=== PATIENT | female | born 1940 | race Caucasian/White ===

== ENCOUNTER 2018-03-06 17:08 | Inpatient (IN) | payer OTHER, SELFPAY ==
[2018-03-06] VITALS (10 sets, daily range): BP systolic 113–185; BP diastolic 53–91; PULSE 71–80; RESP 16; TEMP 36.4–36.9; O2SAT 93–99; BMI 20.2; BMI 19.5
--- NOTE | 2018-03-06 17:09 | DI.RAD.S_ITS ---
PROCEDURE: XR CHEST 1V INDICATIONS: 77 year-old female with trauma. TECHNIQUE: One view of the chest was acquired. COMPARISON: [facility], CHEST 2 VIEW, 05/31/2017, 10:50. [facility], , CHEST 2 VIEW, 03/17/2017, 10:54. FINDINGS: Surgical changes and devices: None. Lungs and pleura: No pleural effusions or pneumothorax. Lungs are clear. Lung volumes are prominent. Mediastinum: Mediastinal contours appear normal. Heart size is normal. There is aortic atherosclerosis. Bones and chest wall: No suspicious bony lesions. Overlying soft tissues appear unremarkable. IMPRESSION: No acute cardiopulmonary disease. Prominent lung volumes raise the question of chronic obstructive pulmonary disease. Dictated by: Iván Vera M.D. on 03/06/2018 at 17:58 Approved by: Iván Vera M.D. on 03/06/2018 at 17:59
--- NOTE | 2018-03-06 17:09 | DI.RAD.S_ITS ---
PROCEDURE: XR HIP W PEL IF DONE RT 2V INDICATIONS: 77 year-old female with right hip deformity after fall. TECHNIQUE: AP pelvis with lateral view(s) of the right hip(s). COMPARISON: None. FINDINGS: Bones: Comminuted intertrochanteric fracture of the proximal right femur is present, with varus angulation of the distal fracture component. Pelvic ring appears intact. No suspicious bony lesions. Soft tissues: The visualized bowel gas pattern is normal. No suspicious soft tissue calcifications. IMPRESSION: Comminuted intertrochanteric fracture of the right hip. Dictated by: Iván Vera M.D. on 03/06/2018 at 18:20 Approved by: Iván Vera M.D. on 03/06/2018 at 18:21
--- NOTE | 2018-03-06 17:12 | ED_ITS ---
HPI - Fall General Chief Complaint: Fall Stated Complaint: GLF Time Seen by Provider: 03/06/18 17:08 Source: patient and EMS Mode of arrival: EMS Limitations: no limitations History of Present Illness HPI Narrative: 71-year-old otherwise healthy female presents after mechanical fall due to flip flops resulted in an obvious right hip or femur injury or with shortening and external rotation. She denies any dizziness, weakness or lightheadedness contributing to the fall. She denies any head injury or neck pain. She takes no blood thinners and last ate at breakfast this morning Related Data Previous Rx's Medication Instructions Recorded darifenacin [Enablex] 7.5 mg PO QDAY #90 tab 05/27/13 levofloxacin [Levaquin] 750 mg PO QDAY #5 tab 05/31/17 prednisone 40 mg PO Q DAY 4 Days #0 tab 05/31/17 Allergies Allergy/AdvReac Type Severity Reaction Status Date / Time Sulfa (Sulfonamide Allergy Intermediate RASH Unverified 01/06/18 12:13 Antibiotics) [SULFA (SULFONAMIDE ANTIBIOTICS)] Review of Systems Review of Systems All systems reviewed & are unremarkable except as noted in HPI and below Constitutional Denies chills, Denies fever(s), Denies lethargy and Denies weakness Eyes Denies change in vision, Denies eye discharge, Denies irritation and Denies loss of vision ENT Ears, Nose, Mouth, and Throat: Denies change in voice, Denies neck pain and Denies sore throat Cardiovascular Denies chest pain, Denies irregular heart rhythm, Denies lightheadedness, Denies palpitations, Denies dyspnea, Denies dyspnea on exertion and Denies orthopnea Respiratory Denies cough, Denies dyspnea, Denies dyspnea on exertion and Denies wheezing Gastrointestinal Gastrointestinal: Denies abdominal pain, Denies change in bowel habits, Denies diarrhea, Denies nausea and Denies vomiting Genitourinary Denies hematuria, Denies flank pain, Denies urinary incontinence and Denies urinary urgency Musculoskeletal Reports abnormal gait, Reports deformity, Reports limited range of motion, Reports muscle cramps, Denies neck pain and Reports radiating pain into limb Integumentary/Breasts Denies pruritus, Denies erythema, Denies rash and Denies wounds Neurologic Reports abnormal gait, Denies confusion, Denies loss of vision and Denies weakness Psychiatric Denies anxiety, Denies confusion, Denies depression, Denies homicidal ideation and Denies suicidal ideation Endocrine Denies palpitations Hematologic/Lymphatic Denies easy bruising Allergic/Immunologic Denies wheezing Exam Narrative Exam Narrative: Pleasant 77-year-old female in obvious pain, clutching her right thigh. GCS 15 Initial Vital Signs Initial Vital Signs: Vital Signs Temperature 98.5 F 03/06/18 17:14 Pulse Rate 78 03/06/18 17:14 Respiratory Rate 16 03/06/18 17:14 Blood Pressure 185/91 H 03/06/18 17:14 Pulse Oximetry 98 03/06/18 17:14 Const General: cooperative, well developed and acute distress Nutritional Appearance: well nourished Orientation: alert, awake, oriented x3 and not confused HENMT Head: normocephalic and atraumatic Ears: external ears normal and TM's normal bilaterally Nose: external nose normal and No nasal discharge Face and sinus: sinuses nontender, face symmetric, no sinus tenderness and No dry mucous membranes Mouth: oral mucosae normal and moist mucous membranes Teeth and gingiva: dentition normal Throat: tonsils normal and uvula midline Eyes General: appearance normal, both eyes and all related structures Eyelids: eyelids normal Conjunctivae: conjunctivae normal Sclera: sclerae normal Pupils: PERRL EOM: EOM intact bilaterally Neck Neck: normal visual inspection, trachea midline, No lymphadenopathy, No midline deformity and No JVD Lymphatic: No lymphedema Chest Chest: normal inspection of the chest Resp Effort & Inspection: normal respiratory effort, able to speak in complete sentences, no respiratory distress and no use of accessory muscles Auscultation: clear to auscultation bilaterally, no rales, no rhonchi and no wheezes Cardio Rate: regular rate Rhythm: regular rhythm Heart Sounds: no click, no gallops, no murmurs and no rubs Pulses: normal peripheral pulses GI Inspection: non-distended Palpation: soft, no hepatosplenomegaly, No guarding, No pulsatile mass and No tender Auscultation: normal bowel sounds Back/Spine/Pelvis Back: No CVA tenderness Cervical Spine: cervical ROM normal and No pain with cervical ROM Thoracic/Lumbar Spine: thoracic and lumbar spine normal to inspection Skin General: no rashes or lesions noted, No jaundice and No petechiae Neuro General: alert, oriented x3 and no focal motor deficits Speech: speech normal Motor: muscle tone normal throughout Sensory Exam: no sensory deficits noted Extrem General: no clubbing, cyanosis or edema, no pedal edema and no calf tenderness Right lower extremity: hip/thigh Details: abnormal to inspection, tenderness, swelling, abnormal ROM, crepitus and deformity Psych Appearance: well kempt Mental Status: mental status grossly normal Attitude: cooperative Thought Content: normal and suicidality Judgment: judgment good PFSH Social History Smoking Status: Current every day smoker Course Orders Ordered: ED Orders 03/06/18 16:26 Basic Metabolic Panel Stat Complete Blood Count AUTO DIFF Stat 03/06/18 17:09 XR chest 1V Stat XR hip w pel if done RT 2V Stat Discontinued Medications Fentanyl (Sublimaze) 50 mcg 1 mcg/kg (50 mcg) IV NOW ONE Stop: 03/06/18 17:22 Last Admin: 03/06/18 17:36 Dose: 50 mcg Fentanyl (Sublimaze) 50 mcg 1 mcg/kg (50 mcg) IV NOW ONE Stop: 03/06/18 18:21 Last Admin: 03/06/18 18:22 Dose: 50 mcg Hydromorphone HCl (Dilaudid) 0.5 mg IV NOW ONE Stop: 03/06/18 19:54 Last Admin: 03/06/18 19:54 Dose: 0.5 mg Consultations Consultation #1: Dr. Mckeon happy to consult, patient will need surgery, likely tomorrow pending clearance medically. Requests admit to hospitalist Consultation #2: Dr. Pavon happy to accept on his service Vital Signs - 8 hr 03/06/18 17:14 03/06/18 18:26 03/06/18 19:00 Temperature 98.5 F Pulse Rate 78 71 75 Respiratory Rate 16 Blood Pressure 185/91 H Blood Pressure [Right Arm] 148/83 H 148/84 H Pulse Oximetry 98 96 99 03/06/18 19:30 Temperature Pulse Rate 78 Respiratory Rate Blood Pressure Blood Pressure [Right Arm] 154/80 H Pulse Oximetry 98 MDM - Fall Medical Records Attestation: I reviewed the patient's medical records. Lab Data Attestation: I reviewed the patient's lab results. Result diagrams: 03/06/18 16:26 03/06/18 16:26 Lab Results 03/06/18 03/06/18 Range/Units 16:26 16:26 WBC 6.6 (4.5-11.0) X10^3/uL RBC 3.84 L (4.0-5.2) X10^6/uL Hgb 12.1 (12.0-16.0) g/dL Hct 35.5 L (36-46) % MCV 92.4 (80-100) fL MCH 31.6 (26-34) PG MCHC 34.2 (30-36) % RDW 13.7 (11.6-14.8) % Plt Count 281 (150-400) X10^3/uL Neut % (Auto) 58.9 (50-75) % Lymph % (Auto) 26.3 (25-40) % [place] % (Auto) 12.3 (3-14) % Eos % (Auto) 1.9 L (2-4) % Baso % (Auto) 0.6 (0-2) % Neut # (Auto) 3900 (9915-7074) /uL Sodium 133 L (137-145) mmol/L Potassium 3.6 (3.4-5.1) mmol/L Chloride 97 L (98-107) mmol/L Carbon Dioxide 26 (22-32) mmol/L BUN 19 H (7-17) mg/dL Creatinine 0.60 (0.52-1.04) mg/dL Estimated GFR > 60.0 (>60) mL/min BUN/Creatinine Ratio 31.7 H (6-22) Glucose 90 (80-110) mg/dL Calcium 8.7 (8.4-10.2) mg/dL Imaging Data Hip Xray: My impression: comminuted R intertrochanteric fx Radiologist's impression: PROCEDURE: XR HIP W PEL IF DONE RT 2V INDICATIONS: 77 year-old female with right hip deformity after fall. TECHNIQUE: AP pelvis with lateral view(s) of the right hip(s). COMPARISON: None. FINDINGS: Bones: Comminuted intertrochanteric fracture of the proximal right femur is present, with varus angulation of the distal fracture component. Pelvic ring appears intact. No suspicious bony lesions. Soft tissues: The visualized bowel gas pattern is normal. No suspicious soft tissue calcifications. IMPRESSION: Comminuted intertrochanteric fracture of the right hip. Dictated by: Iván Vera M.D. on 03/06/2018 at 18:20 Approved by: Iván Vera M.D. on 03/06/2018 at 18:21 Discharge Plan Departure Patient Disposition: Admitted As Inpatient Clinical Impression: Closed hip fracture Admit Date/Time: 03/06/18 19:55 Admit Provider: Arley Pavon
[2018-03-06] MEDS: fentaNYL 100 MCG/2 ML INJ 50 MCG IV ×2 (17:36→18:22)
[2018-03-06 17:38] LABS: Add Manual Diff / Slide Review NO; Basophils Percent Auto 0.6 % (0-2); Eosinophils Percent Auto 1.9 % (2-4); Hematocrit 35.5 % (36-46); Hemoglobin 12.1 g/dL (12.0-16.0); Lymphocytes Percent Auto 26.3 % (25-40); Mean Corpuscular HGB Conc 34.2 % (30-36); Mean Corpuscular Hemoglobin 31.6 PG (26-34); Mean Corpuscular Volume 92.4 fL (80-100); Monocytes Percent Auto 12.3 % (3-14); Neutrophils Absolute Auto 3900 /uL (3000-5900); Neutrophils Percent Auto 58.9 % (50-75); Platelet Count 281 X10^3/uL (150-400); Red Blood Cell Count 3.84 X10^6/uL (4.0-5.2); Red Cell Distribution Width 13.7 % (11.6-14.8); White Blood Cell Count 6.6 X10^3/uL (4.5-11.0)
[2018-03-06 17:49] LABS: BUN Creatinine Ratio 31.7 (6-22); Blood Urea Nitrogen 19 mg/dL (7-17); Calcium 8.7 mg/dL (8.4-10.2); Carbon Dioxide 26 mmol/L (22-32); Chloride 97 mmol/L (98-107); Estimated Glomerular Filt Rate > 60.0 mL/min (>60); Glucose 90 mg/dL (80-110); HEMOLYSIS 19 (0-50); Potassium 3.6 mmol/L (3.4-5.1); Sodium 133 mmol/L (137-145)
[2018-03-06] MEDS: HYDROMORPHONE 0.5 MG INJ IV (19:54)
--- NOTE | 2018-03-06 20:51 | PM.CN ---
History of Present Illness Date Patient Seen: 03/06/18 Time Patient Seen: 20:51 Chief complaint: GLF Reason for consult: R hip fracture Requesting provider: Arthur Restrepo Narrative: 77 year old female with a right hip fracture. She tripped on her flip flops and fell earlier this afternoon. GLF. Did not hit head or LOC. Not complaining of pain anywhere else. Unable to walk. Severe pain with any motion. Sharp to anterior right thigh. She just moved to [facility] last week and has 3 children locally. She has HTN and COPD. Not O2 dependent but gets very SOB with exertion normally. [facility] Medical History COPD (chronic obstructive pulmonary disease) (Acute) Hypertension (Acute) Social History Smoking Status: Current every day smoker Meds Home Medications Medication Instructions Recorded Confirmed Type darifenacin [Enablex] 7.5 mg PO QDAY #90 tab 05/27/13 Rx levofloxacin [Levaquin] 750 mg PO QDAY #5 tab 05/31/17 Rx prednisone 40 mg PO Q DAY 4 Days #0 tab 05/31/17 Rx Allergies Allergy/AdvReac Type Severity Reaction Status Date / Time Sulfa (Sulfonamide Allergy Intermediate RASH Verified 03/06/18 21:06 Antibiotics) [SULFA (SULFONAMIDE ANTIBIOTICS)] Review of Systems Constitutional Constitutional: Reports fatigue ENT Ears, Nose, Mouth, and Throat: No dizziness Cardiovascular Cardiovascular: Denies chest pain and Reports shortness of breath with activity Respiratory Respiratory: Reports dyspnea on exertion Gastrointestinal Gastrointestinal: Denies abdominal pain Genitourinary Genitourinary: Denies hematuria Musculoskeletal Musculoskeletal: Reports deformity Neurologic Neurologic: Denies dizziness Psychiatric Psychiatric: Denies anxiety Endocrine Endocrine: Reports fatigue Hematologic/Lymphatic Hematologic/Lymphatic: Denies easy bleeding Exam Vital Signs (past 8 hours): Vital Signs - 8 hr 03/06/18 17:14 03/06/18 18:26 03/06/18 19:00 Temperature 98.5 F Pulse Rate 78 71 75 Respiratory Rate 16 Blood Pressure 185/91 H Blood Pressure [Right Arm] 148/83 H 148/84 H Pulse Oximetry 98 96 99 03/06/18 19:30 03/06/18 20:00 Temperature Pulse Rate 78 77 Respiratory Rate Blood Pressure Blood Pressure [Right Arm] 154/80 H 113/57 L Pulse Oximetry 98 98 Pulse Oximetry 98 Oxygen Delivery Method Room Air Const Orientation: alert and oriented x3 Resp Effort & Inspection: normal respiratory effort Auscultation: clear to auscultation bilaterally Cardio Rate: regular rate Rhythm: regular rhythm Back/Spine/Pelvis Other: R leg intact integument. ER of leg. 2+ DP pulse. easily moves foot/toes up/down. intact sensation throughout. Objective Imaging R hip: My impression: 3 part displaced fracture through greater trochanter and intertrochanteric region. intact lesser troch Labs Result Diagrams: 03/06/18 16:26 03/06/18 16:26 Labs: Laboratory Results - last 24 hr 03/06/18 03/06/18 16:26 16:26 WBC 6.6 RBC 3.84 L Hgb 12.1 Hct 35.5 L MCV 92.4 MCH 31.6 MCHC 34.2 RDW 13.7 Plt Count 281 Neut % (Auto) 58.9 Lymph % (Auto) 26.3 [place] % (Auto) 12.3 Eos % (Auto) 1.9 L Baso % (Auto) 0.6 Neut # (Auto) 3900 Sodium 133 L Potassium 3.6 Chloride 97 L Carbon Dioxide 26 BUN 19 H Creatinine 0.60 Estimated GFR > 60.0 BUN/Creatinine Ratio 31.7 H Glucose 90 Calcium 8.7 Assessment & Plan Plan: Assessment/Plan Narrative: HTN and COPD per medicine. Admitted to medicine. R hip fx- plan for ORIF in morning. Discussed surgery and recovery with patient and her daughter at length. Risks and benefits of surgery were discussed including but not limited to medical with AL, CVA, stroke, DVT, PE, , infection, bleeding, scarring, nerve or blood vessel injury, nonunion, malunion, limp, loss of ambulatory status, need for further surgery. All questions were answered and the consents obtained.
[2018-03-06] MEDS: SODIUM CHLORIDE 0.9% 1,000 ML 100 ML IV (22:17)
[2018-03-06] MEDS: ACETAMINOPHEN 325 MG TABLET 650 MG PO (22:18)
[2018-03-06] MEDS: HYDROMORPHONE 0.5 MG INJ 1 MG IV (22:52)
--- NOTE | 2018-03-06 23:22 | PC.NURSE ---
nelida admit note Pt c/o severe pain to right hip with any movement. medicated with Dilaudid. Pt then was nauseated. Called / Mike and received orders.
[2018-03-07] VITALS (22 sets, daily range): BP systolic 100–147; BP diastolic 53–76; PULSE 69–89; RESP 10–19; TEMP 36.3–37; O2SAT 93–100; BMI 19.5
--- NOTE | 2018-03-07 | DI.RAD.S_ITS ---
PROCEDURE: XR HIP W PEL IF DONE RT 2V INDICATIONS: ORIF RT HIP TECHNIQUE: 3 views of the hip were acquired. COMPARISON: None. FINDINGS: 3 spot fluoroscopic intraoperative images demonstrating plate and screw fixation of proximal right femur fracture Dictated by: Keon Thompson M.D. on 03/07/2018 at 9:45 Approved by: Keon Thompson M.D. on 03/07/2018 at 9:46
[2018-03-07] MEDS: HYDROMORPHONE 0.5 MG INJ 1 MG IV (04:58)
[2018-03-07] MEDS: ONDANSETRON 4 MG/2 ML INJ IV (05:05)
[2018-03-07 05:49] LABS: Hematocrit 30.3 % (36-46); Hemoglobin 10.5 g/dL (12.0-16.0)
[2018-03-07] MEDS: LACTATED RINGERS 1,000 ML 42 ML IV (07:50)
[2018-03-07] MEDS: ALBUTEROL 2.5 MG/3 ML NEB INH (08:04)
[2018-03-07] MEDS: CARVEDILOL 6.25 MG TABLET PO ×2 (08:07→20:53)
[2018-03-07] MEDS: CEFAZOLIN 2 GM/100 ML FROZ.PIGGY IV ×3 (08:19→23:46)
--- NOTE | 2018-03-07 08:45 | SUR.OPER ---
Head on pillow. Supine on fracture table with operative leg secured in traction. Other leg secured in padded stirrup. Arms across chest, secured with sheet.
[2018-03-07] MEDS: BUPIVACAINE LIPOSOME 266 MG/20 ML VIAL INJ (08:54)
[2018-03-07] MEDS: BUPIVACAINE 0.25% W/ EPI 50 ML VIAL INJ (08:54)
--- NOTE | 2018-03-07 09:39 | PM.OP.1 ---
Operative Date/Time/Diagnoses - Date of procedure: 03/07/18 Time of procedure: 09:39 Pre-op diagnosis: Right intertrochanteric hip fracture Post-op diagnosis: same Procedure & Clinicians Procedure: ORIF of right hip intertrochanteric fracture with plate screw system Same procedure as scheduled: Yes Indications: 77-year-old female with a displaced intertrochanteric hip fracture. It was felt she would benefit from surgical intervention. Risks and benefits of surgery were discussed and appropriate consent obtained. Surgeon: Carlyle Mckeon Click Yes if Unassisted: Yes Anesthesia Type: General Operative Notes Findings: None Closure Type: primary Specimen(s): none sent Implants & Drains: Synthes DHS Hemovac Estimated Blood Loss (mL): 50 Procedure in detail: Patient was brought to the operating room and intubated on the stretcher. Time-out was performed. Preoperative antibiotics were given. They were then transferred to the fracture table. The well leg was placed in the well leg stout and the well marked right leg was placed in traction. The fracture was reduced in a closed fashion and confirmed with x-ray positioning. The leg was prepped and draped in the standard sterile fashion. Using fluoro for localization, a 12 cm longitudinal incision was made just distal to the greater trochanter. We used Bovie to come down to and split the fascia. The vastus lateralis was exposed and the muscle was split. We exposed the bone. The drill guide was positioned and checked under x-ray and then we advanced a guidewire up the femoral neck into the head. Position was confirmed on two views of fluoroscopy. We then measured and reamed under fluoro. We then placed our 80 mm length hip screw. We then placed a 4 hole plate over the screw and fixed it to the femoral shaft with standard AO technique. Final x-rays were taken. The wound was irrigated. The vastus and then the fascia were closed. A deep drain was placed. Superficial and skin were closed. Sterile dressing was placed. They were then extubated and brought to the recovery room with no complications. Complications: none Condition: stable Disposition: PACU Plan for aftercare: Touchdown weight-bearing for 6 weeks. Admitted inpatient.
[2018-03-07] MEDS: MORPHINE 10 MG/ML INJ 4 MG IV ×3 (09:50→10:00)
--- NOTE | 2018-03-07 11:14 | SUR.PHASEI ---
late entyry: pt brought to pacu from room via bed, given carvedilol and albuteral per dr toro. pt taken to surgery, pt back to pacu from or, stable pacu stay medicated with morphine for pain, rating started 10/10 down to 4/10 by discharge. pt brought up to room 208 via bed and left in stable condition.
[2018-03-07] MEDS: LACTATED RINGERS 1,000 ML 125 ML IV ×2 (11:30→20:55)
--- NOTE | 2018-03-07 13:02 | PM.HP.1 ---
History of Present Illness Date Patient Seen: 03/07/18 Chief complaint: GLF Narrative: This is a 77-year-old female patient of Dr. Maria Victoria Bustamante who had a loss of balance at home resulting in ground level fall. X-rays showed right hip fracture. She had ORIF of right hip morning of March 07 after admission. She is seen postop and doing well. She has history of falls. She does not use a walker. She moved to [facility], [place] just a week ago. She has medical history of COPD, hypertension. She states her breathing is stable though she is quite limited due to her COPD. She is not on home O2. She is a current smoker. She also has significant excess alcohol use 4 beers or more a day possible contributor to falls. Patient History Medical History COPD (chronic obstructive pulmonary disease) (Acute) Hypertension (Acute) Family & Social History Family History: Reviewed 03/07/18 by Arley Pavon MD Social History: household members none Prior Living Arrangements [facility] Safety & Behavioral: Feels Safe in Current Yes Environment Been Physically Hurt or No Threatened By a Person Suicidal Ideation Description None Suicide Plan Description No Plan Tobacco & Substance use: Tobacco type cigarettes Smoking Status Current every day smoker alcohol intake frequency 0-2 drinks per day Substance Use Type does not use Meds Home Medications Medication Instructions Recorded Confirmed Type albuterol sulfate 2 puff INHALATION Q4-6H PRN 03/06/18 03/06/18 History aspirin 81 mg PO DAILY 03/06/18 03/06/18 History bupropion HCl [Wellbutrin SR] 150 mg PO BID 03/06/18 03/06/18 History carvedilol 6.25 mg PO BID 03/06/18 03/06/18 History docusate sodium 100 mg PO BID PRN 03/06/18 03/06/18 History fenofibrate 54 mg PO DAILY 03/06/18 03/06/18 History lisinopril 20 mg PO BID 03/06/18 03/06/18 History sertraline 100 mg PO DAILY 03/06/18 03/06/18 History Allergies Allergy/AdvReac Type Severity Reaction Status Date / Time Sulfa (Sulfonamide Allergy Intermediate RASH Verified 03/06/18 21:06 Antibiotics) [SULFA (SULFONAMIDE ANTIBIOTICS)] Review of Systems Review of Systems All systems reviewed & are unremarkable except as noted in HPI and below Exam Vital Signs (past 8 hours): Vital Signs - 8 hr 03/07/18 05:04 03/07/18 07:30 03/07/18 07:50 Temperature 97.4 F L 97.6 F 97.9 F Pulse Rate 75 75 Respiratory Rate 16 16 16 Blood Pressure 120/60 100/53 L 112/55 L Pulse Oximetry 97 95 03/07/18 09:31 03/07/18 09:36 03/07/18 09:41 Temperature 98.6 F Pulse Rate 77 78 77 Respiratory Rate 10 L 16 18 Blood Pressure 147/70 H 130/66 H 135/60 H Pulse Oximetry 100 99 100 03/07/18 09:46 03/07/18 09:51 03/07/18 10:01 Temperature Pulse Rate 78 69 78 Respiratory Rate 17 16 19 Blood Pressure 125/59 H 121/59 H 127/66 H Pulse Oximetry 99 100 97 03/07/18 10:06 03/07/18 10:11 03/07/18 10:30 Temperature 98.4 F 97.3 F L Pulse Rate 77 77 89 Respiratory Rate 16 16 12 Blood Pressure 129/54 H 118/57 L 116/70 Pulse Oximetry 99 97 93 03/07/18 11:00 03/07/18 11:39 Temperature 97.6 F 97.7 F Pulse Rate 79 80 Respiratory Rate 16 18 Blood Pressure 104/64 117/54 L Pulse Oximetry 94 98 Pulse Oximetry 98 Oxygen Delivery Method Room Air Oxygen Flow Rate 1 Narrative Exam Narrative: GENERAL: Elderly female who is alert and well oriented, in no acute distress, seen postop HEAD: Atraumatic. Normocephalic. EYES: Pupils equal, round and reactive. Extraocular motions intact. No scleral icterus. No injection or drainage. OROPHARYNX: moist mucosa NECK: Trachea midline. No JVD or lymphadenopathy. CARDIOVASCULAR: Regular rate and rhythm without murmurs, gallops, or rubs. RESPIRATORY: Clear to auscultation bilaterally. GASTROINTESTINAL: Abdomen nondistended, soft, non-tender. No hepato-splenomegaly, or palpable masses. EXTREMITIES: No this edema. NEUROLOGICAL: Alert, well oriented, speech is intact, normal bilateral upper and lower extremity strength SKIN: warm, dry, no rash Objective Labs Result Diagrams: 03/07/18 05:28 03/06/18 16:26 Labs: Laboratory Results - last 24 hr 03/06/18 03/06/18 03/07/18 16:26 16:26 05:28 WBC 6.6 RBC 3.84 L Hgb 12.1 10.5 L Hct 35.5 L 30.3 L MCV 92.4 MCH 31.6 MCHC 34.2 RDW 13.7 Plt Count 281 Neut % (Auto) 58.9 Lymph % (Auto) 26.3 [place] % (Auto) 12.3 Eos % (Auto) 1.9 L Baso % (Auto) 0.6 Neut # (Auto) 3900 Sodium 133 L Potassium 3.6 Chloride 97 L Carbon Dioxide 26 BUN 19 H Creatinine 0.60 Estimated GFR > 60.0 BUN/Creatinine Ratio 31.7 H Glucose 90 Calcium 8.7 Assessment & Plan Plan: Assessment/Plan Narrative: 1. Right hip fracture: Patient stable status post ORIF on 03/07/2018. Continue postop pain management, physical therapy. 2. COPD: Stable. Continue routine inhalers. 3. Hypertension: BP adequately controlled. Continue routine medications. Quality VTE Deep Vein Thrombosis/Pulmonary Embolism Present on Admission: No
--- NOTE | 2018-03-07 13:07 | P.HP_ITS ---
History of Present Illness Date Patient Seen: 03/07/18 Chief complaint: GLF Narrative: This is a 77-year-old female patient of Dr. Maria Victoria Bustamante who had a loss of balance at home resulting in ground level fall. X-rays showed right hip fracture. She had ORIF of right hip morning of March 07 after admission. She is seen postop and doing well. She has history of falls. She does not use a walker. She moved to [facility] just a week ago. She has medical history of COPD, hypertension. She states her breathing is stable though she is quite limited due to her COPD. She is not on home O2. She is a current smoker. She also has significant excess alcohol use 4 beers or more a day possible contributor to falls. Patient History Medical History COPD (chronic obstructive pulmonary disease) (Acute) Hypertension (Acute) Family & Social History Family History: Reviewed 03/07/18 by Arley Pavon MD Social History: household members none Prior Living Arrangements Alf Facility Safety & Behavioral: Feels Safe in Current Yes Environment Been Physically Hurt or No Threatened By a Person Suicidal Ideation Description None Suicide Plan Description No Plan Tobacco & Substance use: Tobacco type cigarettes Smoking Status Current every day smoker alcohol intake frequency 0-2 drinks per day Substance Use Type does not use Meds Home Medications Medication Instructions Recorded Confirmed Type albuterol sulfate 2 puff INHALATION Q4-6H PRN 03/06/18 03/06/18 History aspirin 81 mg PO DAILY 03/06/18 03/06/18 History bupropion HCl [Wellbutrin SR] 150 mg PO BID 03/06/18 03/06/18 History carvedilol 6.25 mg PO BID 03/06/18 03/06/18 History docusate sodium 100 mg PO BID PRN 03/06/18 03/06/18 History fenofibrate 54 mg PO DAILY 03/06/18 03/06/18 History lisinopril 20 mg PO BID 03/06/18 03/06/18 History sertraline 100 mg PO DAILY 03/06/18 03/06/18 History Allergies Allergy/AdvReac Type Severity Reaction Status Date / Time Sulfa (Sulfonamide Allergy Intermediate RASH Verified 03/06/18 21:06 Antibiotics) [SULFA (SULFONAMIDE ANTIBIOTICS)] Review of Systems Review of Systems All systems reviewed & are unremarkable except as noted in HPI and below Exam Vital Signs (past 8 hours): Vital Signs - 8 hr 3 03/07/18 05:04 03/07/18 07:30 03/07/18 07:50 Temperature 97.4 F L 97.6 F 97.9 F Pulse Rate 75 75 Respiratory Rate 16 16 16 Blood Pressure 120/60 100/53 L 112/55 L Pulse Oximetry 97 95 3 03/07/18 09:31 03/07/18 09:36 03/07/18 09:41 Temperature 98.6 F Pulse Rate 77 78 77 Respiratory Rate 10 L 16 18 Blood Pressure 147/70 H 130/66 H 135/60 H Pulse Oximetry 100 99 100 3 03/07/18 09:46 03/07/18 09:51 03/07/18 10:01 Temperature Pulse Rate 78 69 78 Respiratory Rate 17 16 19 Blood Pressure 125/59 H 121/59 H 127/66 H Pulse Oximetry 99 100 97 3 03/07/18 10:06 03/07/18 10:11 03/07/18 10:30 Temperature 98.4 F 97.3 F L Pulse Rate 77 77 89 Respiratory Rate 16 16 12 Blood Pressure 129/54 H 118/57 L 116/70 Pulse Oximetry 99 97 93 3 03/07/18 11:00 03/07/18 11:39 Temperature 97.6 F 97.7 F Pulse Rate 79 80 Respiratory Rate 16 18 Blood Pressure 104/64 117/54 L Pulse Oximetry 94 98 Pulse Oximetry 98 Oxygen Delivery Method Room Air Oxygen Flow Rate 1 Narrative Exam Narrative: GENERAL: Elderly female who is alert and well oriented, in no acute distress, seen postop HEAD: Atraumatic. Normocephalic. EYES: Pupils equal, round and reactive. Extraocular motions intact. No scleral icterus. No injection or drainage. OROPHARYNX: moist mucosa NECK: Trachea midline. No JVD or lymphadenopathy. CARDIOVASCULAR: Regular rate and rhythm without murmurs, gallops, or rubs. RESPIRATORY: Clear to auscultation bilaterally. GASTROINTESTINAL: Abdomen nondistended, soft, non-tender. No hepato- splenomegaly, or palpable masses. EXTREMITIES: No this edema. NEUROLOGICAL: Alert, well oriented, speech is intact, normal bilateral upper and lower extremity strength SKIN: warm, dry, no rash Objective Labs Result Diagrams: 03/07/18 05:28 03/06/18 16:26 Labs: Laboratory Results - last 24 hr 03/06/18 03/06/18 03/07/18 16:26 16:26 05:28 WBC 6.6 RBC 3.84 L Hgb 12.1 10.5 L Hct 35.5 L 30.3 L MCV 92.4 MCH 31.6 MCHC 34.2 RDW 13.7 Plt Count 281 Neut % (Auto) 58.9 Lymph % (Auto) 26.3 [place] % (Auto) 12.3 Eos % (Auto) 1.9 L Baso % (Auto) 0.6 Neut # (Auto) 3900 Sodium 133 L Potassium 3.6 Chloride 97 L Carbon Dioxide 26 BUN 19 H Creatinine 0.60 Estimated GFR > 60.0 BUN/Creatinine Ratio 31.7 H Glucose 90 Calcium 8.7 Assessment & Plan Plan: Assessment/Plan Narrative: 1. Right hip fracture: Patient stable status post ORIF on 03/07/2018. Continue postop pain management, physical therapy. 2. COPD: Stable. Continue routine inhalers. 3. Hypertension: BP adequately controlled. Continue routine medications. Quality VTE Deep Vein Thrombosis/Pulmonary Embolism Present on Admission: No
[2018-03-07] MEDS: HYDROCODONE/ACET 5/325 TABLET 2 TAB PO ×3 (13:55→23:44)
--- NOTE | 2018-03-07 16:16 | PT.IIE ---
Surgery Performed Operation Date: 03/07/18 07:05 Actual Procedures p ORIF Hip DHS(Right) - Carlyle Mckeon MD Medical History (Last Reviewed 03/07/18 @ 13:04 by Arley Pavon MD) COPD (chronic obstructive pulmonary disease) (Acute) Hypertension (Acute) Physical Therapy Inpatient Evaluation/Re-Eval M1 PT/OT-IP Prior Functional Status Start: 03/07/18 16:00 Freq: Status: Active Protocol: Document 03/07/18 15:50 RCC (Rec: 03/07/18 16:16 RCC [id number]) Medical Review Prior Functional Status Medical History Reviewed Yes Diet/Fluid Consistency Regular Communication WNL Mobility and Gait Indep. ambulator without device, not much ambulation in community recently. Social History Household Members none Living Arrangements Alf Facility Number of Stairs To Enter/Railing? 0 Home Environment Walk in Shower Additional Social History Comment Recently moved into [facility] 1 week ago from [facility]. No assistive devices. M2 PT-IP Current Condition Start: 03/07/18 16:00 Freq: Status: Active Protocol: Document 03/07/18 15:50 RCC (Rec: 03/07/18 16:16 RCC [id number]) Physical Therapy Current Condition Current Condition Evaluation Date 03/07/18 Treatment Diagnosis R hip ORIF 03/07/18, GLF, weakness Onset Date 03/06/18 Precautions Other Precautions Touch-down weight-bearing x6 weeks RLE. Weight Bearing Status Weight Bearing Status Touch Down Weight Bearing M3 PT-IP Subjective Start: 03/07/18 16:00 Freq: Status: Active Protocol: Document 03/07/18 15:50 RCC (Rec: 03/07/18 16:16 [facility] [id number]) Subjective Physical Therapy Visit Type Type Initial Evaluation Visit Start Time 15:00 Visit Stop Time 15:50 Total Visit Minutes 50 Notes 2 daughters in room on arrival . Physical Therapy Visit Comments Patient Comments Pt fearful to move her R leg, notes pain to even move just the L leg. Patient/Caregiver Goals Get back to normal life. Therapy Pain Assessment Pain When Pain Assessed At Rest Pain Present Pain Present Pain Reported Location Right Hip Intensity 8 Scale Used Numeric (1 - 10) Description Aching Spasm Stabbing Pain Behaviors Facial Grimacing Guarding Moaning Pain Management Techniques Modification of Treatment Re-positioning Timing of Activity with Medications M4 PT-IP Mobility and Gait Start: 06/10/18 16:00 Freq: Status: Active Protocol: Document 03/07/18 15:50 RCC (Rec: 03/07/18 16:16 [facility] [id number]) PT-Bed Mobility Assessment Supine to Sit Supine to Sit Maximum Assistance 1 Person Assistance Sit to Supine Sit to Supine Maximum Assistance 1 Person Assistance Scooting Scooting to Edge of Bed Maximum Assistance PT-Transfer Assessment Comments Mobility Comments Did not attempt due to pain. PT-Balance Assessment Sitting Balance and Reactions Static Sitting Balance Ability Fair Dynamic Sitting Balance Ability Fair M5 PT-IP Objective Assessments Start: 03/07/18 16:00 Freq: Status: Active Protocol: Document 03/07/18 15:50 [facility] (Rec: 03/07/18 16:16 [facility] [id number]) Orientation Orientation/Cognition Level of Alertness Alert Orientation Name Place Situation Language Function Ability No Deficits Noted Safety Awareness Decreased Safety Awareness Strength Lower Extremity Strength Assessment Bilaterally Impaired Hip Hip flexion: L 3/5, R 2/5 Knee extension: L 3+/5, R 2+/5 Ankle DF: L 5/5, R 4/5 Coordination Assessment Gross Coordination Gross Coordination WNL Sensation Assessment Sensation Gross Sensation WNL Muscle Tone Muscle Tone WNL Yes M6 PT-IP Treatment Start: 03/07/18 16:00 Freq: Status: Active Protocol: Document 03/07/18 15:50 [facility] (Rec: 03/07/18 16:16 [facility] [id number]) Physical Therapy Treatment Education Education Provided Precautions Weight Bearing Status Post-Op Packet Safety Other Treatments Other Treatment Performed seated LAQ M7 PT-IP Assessment and Plan Start: 03/07/18 16:00 Freq: Status: Active Protocol: Document 03/07/18 15:50 [facility] (Rec: 03/07/18 16:16 [facility] [id number]) PT Summary Assessment and Plan Potential Rehabilitation Potential Good Status of Condition at Evaluation Evolving Summary Impairments Pain Strength Balance Bed Mobility Transfers Gait Activity Tolerance Assessment Summary Same day post-operative R hip ORIF due to intertrochanteric hip fracture. Orders for TDWB for 6 wks. Family and pt initially surprised pt only allowed for TDWB, increased concern about when she can return to [facility] as she just moved in 1 wk ago. Pt requires increased coaxing, step by step instruction and reminders to breathe to calm herself down. Pain increased with mobility but calmed after pt sitting on EOB. Pt not ready at this time to attempt standing due to pain, anxiety/ fear, and difficulty in sitting position. Overall, pt will require prolonged physical therapy in order to return to prior level of function, and limitation with TDWB of the RLE affects the pt 's ability to ambulate where she will likely require skilled services at SNF rehabilitation for an extended period in order to remain safe with healing and mobility . Pt is not safe to return to [facility] at this time and will require SNF rehabilitation upon d/c. Goals Bed Mobility Goal Minimal Assistance Transfer Goal Moderate Assistance Front Wheeled Walker Gait Goal Moderate Assistance Gait Distance 5 (fwd, bkwd alternating L heel-toe scooting) Days to Meet Goals 4 Frequency of Treatment Frequency Of Treatment Twice a Day Treatment Plan Physical Therapy Treatment Plan Bed Mobility Training Transfer Training Gait Training Therapeutic Exercise Balance Retraining Post Op Education Discharge Planning Hot or Cold Pack Neuromuscular Re-ed Other Recommendations and Next Treatment Review post-op exercises, Focus trial standing with 2 assist and FWW (TDWB RLE), progress toward transfers. Recommendations To Nursing Amount of Assist Needed 2 Person Assist Discharge Recommendations PT Discharge Recommendations SNF Rehab Provider Visit Care Team Role Provider Type Carlyle Mckeon MD Other Providers Physician Specialty: Orthopedic Surgery Maria Victoria Bustamante MD Family Provider Physician Primary Care Provider Specialty: Internal Medicine Arthur Restrepo DO Emergency Provider Physician Specialty: Emergency Medicine Arley Pavon MD Admit Provider Physician Attending Provider Specialty: Internal Medicine
[2018-03-07] MEDS: ALBUTEROL HFA 60 PUFF/8 GM INH INH (16:36)
[2018-03-07] MEDS: LISINOPRIL 20 MG TABLET PO (20:53)
[2018-03-07] MEDS: buPROPion SR 150 MG TAB PO (20:53)
[2018-03-07] MEDS: DOCUSATE 100 MG CAPSULE PO (20:53)
--- NOTE | 2018-03-07 21:24 | PC.NURSE ---
Patient post op right hip pin today- states she does not hurt unless she moves. Medicated with vicodin and encouraged to reposition. vargheseell dressing dry/intact- hemovac draining serousang. ice to right hip intermittently for pain control.
[2018-03-07] MEDS: hydrOXYzine pamoate 25 MG CAPSULE PO (22:02)
[2018-03-08] VITALS (9 sets, daily range): BP systolic 114–134; BP diastolic 56–72; PULSE 72–82; RESP 14–18; TEMP 36.4–37; O2SAT 95–98
--- NOTE | 2018-03-08 | PC.NURSE ---
Addendum entered by Carole Gerard R.N. 03/08/18 06:42: Able to sleep most of shift. Continues to grimace and grab at hip with any movement despite use of Vicodin. Agreeable to having SCD's put back on this morning. Original Note: Alert and oriented. Breath sounds very diminished with RA sat of 97%. HRR. Denies nausea. BT present and is passing flatus. Indwelling catheter is patent. Aquacel dressing to right hip is CDI. Hemovac is intact and compressed. Complains of 8/10 right hip pain so medicated with Vicodin, repositioned onto left side and ice pack applied. Declines to have SCD's on tonight as states she is unable to sleep with them on; reminded to ankle wave. Fall risk score is high and bed alarm is activated.
[2018-03-08] MEDS: HYDROCODONE/ACET 5/325 TABLET 2 TAB PO (04:16)
[2018-03-08] MEDS: LACTATED RINGERS 1,000 ML 125 ML IV (05:09)
[2018-03-08 06:50] LABS: Hemoglobin 8.6 g/dL (12.0-16.0)
[2018-03-08] MEDS: hydrOXYzine pamoate 25 MG CAPSULE PO (06:51)
[2018-03-08] MEDS: TIOTROPIUM BROMIDE 18 MCG INHALER INH (08:26)
[2018-03-08] MEDS: LISINOPRIL 20 MG TABLET PO ×2 (09:35→20:01)
[2018-03-08] MEDS: CARVEDILOL 6.25 MG TABLET PO ×2 (09:36→20:01)
[2018-03-08] MEDS: buPROPion SR 150 MG TAB PO ×2 (09:36→20:00)
[2018-03-08] MEDS: DOCUSATE 100 MG CAPSULE PO ×2 (09:36→20:01)
[2018-03-08] MEDS: SERTRALINE 50 MG TABLET 100 MG PO (09:36)
[2018-03-08] MEDS: ASPIRIN EC 81 MG TABLET PO (09:36)
[2018-03-08] MEDS: OXYCODONE IR 5 MG TABLET PO (09:36)
[2018-03-08] MEDS: ENOXAPARIN 40 MG/0.4 ML SYRINGE SUBCUT (09:37)
--- NOTE | 2018-03-08 10:42 | PM.PNPO.1 ---
Subjective Date Patient Seen: 03/08/18 Time Patient Seen: 10:42 Interval history: Hospital day 3, postop day 1 following right hip fracture with ORIF and plate and screws by Dr. Mckeon on 03/07/2018. Patient has not been out of bed yet. She is toe-touch weight-bearing to right leg x6 weeks postop. Has been taking [place] 5/325 mg 2 tabs q.4h without complete control. Also on Lovenox 40 mg q.d. times 10 doses. Still has Gregory catheter. Exam Vital Signs (past 8 hours): Vital Signs - 8 hr 03/08/18 04:15 03/08/18 07:40 03/08/18 09:35 Temperature 98.6 F 97.6 F Pulse Rate 75 72 Respiratory Rate 18 16 Blood Pressure 114/72 132/70 H 132/70 H Pulse Oximetry 98 95 03/08/18 09:36 Temperature Pulse Rate Respiratory Rate Blood Pressure 132/70 H Pulse Oximetry Pulse Oximetry 95 Oxygen Delivery Method Room Air Oxygen Flow Rate 0 Narrative Exam Narrative: Alert, oriented no acute distress resting in bed. Legs. Aquacel dressing to right hip is dry without drainage or inflammation. Hemovac has minimal drainage. No calf pain or swelling. Pulses symmetrical. Objective Labs Result Diagrams: 03/08/18 06:35 03/06/18 16:26 Labs: Laboratory Results - last 24 hr 03/08/18 06:35 Hgb 8.6 L Hct 25.0 L Assessment & Plan Post-op Postoperative Procedures Operation Date: 03/07/18 07:05 Actual Procedures Side Surgeon p ORIF Hip DHS Right Carlyle Mckeon MD assessment: Status post right hip fracture with ORIF. Plan: Patient will begin working with physical therapy today. Will start patient on oxycodone for pain. Anticipate discharge to SNF for a few days as patient is toe-touch weight-bearing to right leg. DC Gregory catheter on patient more active. DC Hemovac. Time Spent With Patient less than 15 minutes Quality VTE Deep Vein Thrombosis/Pulmonary Embolism Present on Admission: No
--- NOTE | 2018-03-08 10:45 | P.PN_ITS ---
Subjective Date Patient Seen: 03/08/18 Time Patient Seen: 10:42 Interval history: Hospital day 3, postop day 1 following right hip fracture with ORIF and plate and screws by Dr. Mckeon on 03/07/2018. Patient has not been out of bed yet. She is toe-touch weight-bearing to right leg x6 weeks postop. Has been taking [place] 5/325 mg 2 tabs q.4h without complete control. Also on Lovenox 40 mg q.d. times 10 doses. Still has Gregory catheter. Exam Vital Signs (past 8 hours): Vital Signs - 8 hr 3 03/08/18 04:15 03/08/18 07:40 03/08/18 09:35 Temperature 98.6 F 97.6 F Pulse Rate 75 72 Respiratory Rate 18 16 Blood Pressure 114/72 132/70 H 132/70 H Pulse Oximetry 98 95 3 03/08/18 09:36 Temperature Pulse Rate Respiratory Rate Blood Pressure 132/70 H Pulse Oximetry Pulse Oximetry 95 Oxygen Delivery Method Room Air Oxygen Flow Rate 0 Narrative Exam Narrative: Alert, oriented no acute distress resting in bed. Legs. Aquacel dressing to right hip is dry without drainage or inflammation. Hemovac has minimal drainage. No calf pain or swelling. Pulses symmetrical. Objective Labs Result Diagrams: 03/08/18 06:35 03/06/18 16:26 Labs: Laboratory Results - last 24 hr 03/08/18 06:35 Hgb 8.6 L Hct 25.0 L Assessment & Plan Post-op Postoperative Procedures Operation Date: 03/07/18 07:05 Actual Procedures Side Surgeon p ORIF Hip DHS Right Carlyle Mckeon MD assessment: Status post right hip fracture with ORIF. Plan: Patient will begin working with physical therapy today. Will start patient on oxycodone for pain. Anticipate discharge to SNF for a few days as patient is toe-touch weight-bearing to right leg. DC Gregory catheter on patient more active. DC Hemovac. Time Spent With Patient less than 15 minutes Quality VTE Deep Vein Thrombosis/Pulmonary Embolism Present on Admission: No
--- NOTE | 2018-03-08 11:30 | CM.DPNOTE ---
SNF/Planning. Met with patient: Patient is alert and oriented and independent at baseline. Patient resides at [facility] and is requesting SNF at discharge. Patient is requesting [facility]. Faxed SNF Auth request to [facility]. Called [facility]: able to accept patient. Spoke with [facility]: Auth is approved. Plan: Patient to discharge to [facility] when medically stable. PASRR complete.
[2018-03-08] MEDS: OXYCODONE IR 10 MG TABLET PO ×3 (12:59→20:00)
--- NOTE | 2018-03-08 13:30 | PT.IPTN ---
Current Diagnoses Displaced intertrochanteric fracture of right femur, initial encounter for closed fracture (03/06/18) Surgery Performed Operation Date: 03/07/18 07:05 Actual Procedures p ORIF Hip DHS(Right) - Carlyle Mckeon MD Physical Therapy Treatment Note M2 PT-IP Current Condition Start: 03/07/18 16:00 Freq: Status: Active Protocol: Document 03/07/18 15:50 RCC (Rec: 03/07/18 16:16 RCC [id number]) Physical Therapy Current Condition Current Condition Evaluation Date 03/07/18 Treatment Diagnosis R hip ORIF 03/07/18, GLF, weakness Onset Date 03/06/18 Precautions Other Precautions Touch-down weight-bearing x6 weeks RLE. Weight Bearing Status Weight Bearing Status Touch Down Weight Bearing M3 PT-IP Subjective Start: 03/07/18 16:00 Freq: Status: Active Protocol: Document 03/08/18 11:36 RS (Rec: 03/08/18 13:30 RS [id number]) Subjective Physical Therapy Visit Type Type Treatment Note Visit Start Time 10:46 Visit Stop Time 11:36 Total Visit Minutes 50 Physical Therapy Visit Comments Patient Comments Pt expressed the concern several times about needing to avoid pressure wounds. Therapy Pain Assessment Pain When Pain Assessed During Mobility Pain Present Pain Present Pain Reported Location Right Hip Intensity 9 Scale Used Numeric (1 - 10) Pain Management Techniques Apply Cold Modification of Treatment Re-positioning Timing of Activity with Medications M4 PT-IP Mobility and Gait Start: 03/07/18 16:00 Freq: Status: Active Protocol: Document 03/08/18 11:36 RS (Rec: 03/08/18 13:30 RS [id number]) PT-Bed Mobility Assessment Rolling Type of Rolling Roll to Left Level of Assist Minimal Assistance 1 Person Assistance PT-Transfer Assessment Comments Mobility Comments Did not attempt due to pain. Gait Assessment Comments Gait Comments not appropriate to assess Stair Climbing Assessment Comments Stair Climbing Comments not appropriate to assess M5 PT-IP Objective Assessments Start: 03/07/18 16:00 Freq: Status: Active Protocol: Document 03/07/18 15:50 RCC (Rec: 03/07/18 16:16 RCC [id number]) Orientation Orientation/Cognition Level of Alertness Alert Orientation Name Place Situation Language Function Ability No Deficits Noted Safety Awareness Decreased Safety Awareness Strength Lower Extremity Strength Assessment Bilaterally Impaired Hip Hip flexion: L 3/5, R 2/5 Knee extension: L 3+/5, R 2+/5 Ankle DF: L 5/5, R 4/5 Coordination Assessment Gross Coordination Gross Coordination WNL Sensation Assessment Sensation Gross Sensation WNL Muscle Tone Muscle Tone WNL Yes M6 PT-IP Treatment Start: 03/07/18 16:00 Freq: Status: Active Protocol: Document 03/08/18 11:36 RS (Rec: 03/08/18 13:30 RS [id number]) Physical Therapy Treatment Exercises Exercises Ankle Pumps Gluteal Sets Quad Sets Heel Slides Supine Hip Abduction Education Education Provided Precautions Weight Bearing Status Post-Op Packet Safety Other Treatments Other Treatment Performed supine hip abd/add and heel slides were performed passively, then AA, then a few reps of active only. M7 PT-IP Assessment and Plan Start: 03/07/18 16:00 Freq: Status: Active Protocol: Document 03/08/18 11:36 RS (Rec: 03/08/18 13:30 RS [id number]) PT Summary Assessment and Plan Potential Rehabilitation Potential Good Status of Condition at Evaluation Evolving Summary Impairments Pain Strength Balance Bed Mobility Transfers Gait Activity Tolerance Progress Towards Goals Slow Progress due to Pain Assessment Summary Pt still limited by high pain levels, however, with extensive extra time, distraction and passive warm up, pt is able to move the RLE to some degree. Pt then able to more actively participate in repositioning in bed. Pt is expected to continue making slow progress with functional improvement, continue to recommend pt transition to SNF rehab. Treatment Plan Other Recommendations and Next Treatment Review post-op exercises, Focus trial standing with 2 assist and FWW (TDWB RLE), progress toward transfers. Recommendations To Nursing Amount of Assist Needed 2 Person Assist Discharge Recommendations PT Discharge Recommendations SNF Rehab
--- NOTE | 2018-03-08 13:54 | PM.PN.1 ---
Subjective Date Patient Seen: 03/08/18 Time Patient Seen: 13:00 Interval history: 2D still has significant pain in her hip. She was able to work with physical therapy and did some in bed muscle strengthening exercises. Exam Vital Signs (past 8 hours): Vital Signs - 8 hr 03/08/18 07:40 03/08/18 09:35 03/08/18 09:36 Temperature 97.6 F Pulse Rate 72 Respiratory Rate 16 Blood Pressure 132/70 H 132/70 H 132/70 H Pulse Oximetry 95 03/08/18 12:45 Temperature 98.1 F Pulse Rate 82 Respiratory Rate 14 Blood Pressure 134/62 H Pulse Oximetry 97 Pulse Oximetry 97 Oxygen Delivery Method Room Air Oxygen Flow Rate 0 Narrative Exam Narrative: General: Elderly woman in no acute distress Lungs: Decreased breath sound bilaterally Heart: Regular rhythm, no murmur appreciated Abdomen: Soft, nontender Extremities: Right hip was dressed in dressing. ESTELA drain was in place Neuro: Alert and oriented x3. Objective Labs Result Diagrams: 03/08/18 06:35 03/06/18 16:26 Labs: Laboratory Results - last 24 hr 03/08/18 06:35 Hgb 8.6 L Hct 25.0 L Assessment & Plan Plan: Assessment/Plan Narrative: 1. Right hip intertrochanteric fracture: Patient stable status post ORIF on 03/07/2018 with plate and screws. Continue postop pain management, physical therapy+OT. 2. COPD: Stable. Continue routine inhalers. 3. Hypertension: BP adequately controlled. Continue routine medications. Quality VTE Deep Vein Thrombosis/Pulmonary Embolism Present on Admission: Yes
--- NOTE | 2018-03-08 13:59 | P.PN_ITS ---
Subjective Date Patient Seen: 03/08/18 Time Patient Seen: 13:00 Interval history: 2D still has significant pain in her hip. She was able to work with physical therapy and did some in bed muscle strengthening exercises. Exam Vital Signs (past 8 hours): Vital Signs - 8 hr 3 03/08/18 07:40 03/08/18 09:35 03/08/18 09:36 Temperature 97.6 F Pulse Rate 72 Respiratory Rate 16 Blood Pressure 132/70 H 132/70 H 132/70 H Pulse Oximetry 95 3 03/08/18 12:45 Temperature 98.1 F Pulse Rate 82 Respiratory Rate 14 Blood Pressure 134/62 H Pulse Oximetry 97 Pulse Oximetry 97 Oxygen Delivery Method Room Air Oxygen Flow Rate 0 Narrative Exam Narrative: General: Elderly woman in no acute distress Lungs: Decreased breath sound bilaterally Heart: Regular rhythm, no murmur appreciated Abdomen: Soft, nontender Extremities: Right hip was dressed in dressing. ESTELA drain was in place Neuro: Alert and oriented x3. Objective Labs Result Diagrams: 03/08/18 06:35 03/06/18 16:26 Labs: Laboratory Results - last 24 hr 03/08/18 06:35 Hgb 8.6 L Hct 25.0 L Assessment & Plan Plan: Assessment/Plan Narrative: 1. Right hip intertrochanteric fracture: Patient stable status post ORIF on with plate and screws. Continue postop pain management, physical therapy+OT. 2. COPD: Stable. Continue routine inhalers. 3. Hypertension: BP adequately controlled. Continue routine medications. Quality VTE Deep Vein Thrombosis/Pulmonary Embolism Present on Admission: Yes
--- NOTE | 2018-03-08 15:25 | PT.IPTN ---
Current Diagnoses Displaced intertrochanteric fracture of right femur, initial encounter for closed fracture (03/06/18) Surgery Performed Operation Date: 03/07/18 07:05 Actual Procedures p ORIF Hip DHS(Right) - Carlyle Mckeon MD Physical Therapy Treatment Note M2 PT-IP Current Condition Start: 03/07/18 16:00 Freq: Status: Active Protocol: Document 03/07/18 15:50 RCC (Rec: 03/07/18 16:16 RCC [id number]) Physical Therapy Current Condition Current Condition Evaluation Date 03/07/18 Treatment Diagnosis R hip ORIF 03/07/18, GLF, weakness Onset Date 03/06/18 Precautions Other Precautions Touch-down weight-bearing x6 weeks RLE. Weight Bearing Status Weight Bearing Status Touch Down Weight Bearing M3 PT-IP Subjective Start: 03/07/18 16:00 Freq: Status: Active Protocol: Document 03/08/18 15:20 RS (Rec: 03/08/18 15:25 RS [id number]) Subjective Physical Therapy Visit Type Type Treatment Note Visit Start Time 14:45 Visit Stop Time 15:20 Total Visit Minutes 35 Therapy Pain Assessment Pain When Pain Assessed During Mobility Pain Present Pain Present Pain Reported Location Right Hip Intensity 9 Scale Used Numeric (1 - 10) Pain Behaviors Calling Out Facial Grimacing Moaning Wincing Pain Management Techniques Distraction Modification of Treatment Re-positioning Timing of Activity with Medications M4 PT-IP Mobility and Gait Start: 03/07/18 16:00 Freq: Status: Active Protocol: Document 03/08/18 15:20 RS (Rec: 03/08/18 15:25 RS [id number]) PT-Bed Mobility Assessment Supine to Sit Supine to Sit Maximum Assistance 2 Person Assistance Head of Bed Elevated Sit to Supine Sit to Supine Maximum Assistance 2 Person Assistance Head of Bed Elevated Scooting Scooting to Edge of Bed Minimal Assistance Scooting Up and Down in Bed Dependent PT-Transfer Assessment Sit to and From Stand Sit to and from Stand Maximum Assistance 2 Person Assistance Use of Upper Extremities Equipment Transfer Assistive Device Gait Belt Front Wheeled Walker Transfers Transfer Destination Bed Bedside Commode Transfer Technique Stand Pivot Transfer Ability Level of Assist Maximum Assistance 2 Person Assistance Use of Upper Extremities Comments Mobility Comments Left sock turned inside out to make pivoting easier, pt held onto PT's shoulders and essentially hugged this rewriter the entire time she was standing/transferring, able to keep RLE up in the air with assist from 2nd person. Gait Assessment Comments Gait Comments not appropriate to assess Stair Climbing Assessment Comments Stair Climbing Comments not appropriate to assess PT-Balance Assessment Sitting Balance and Reactions Static Sitting Balance Ability Good Dynamic Sitting Balance Ability Good Standing Balance and Reactions Static Standing Balance Ability Poor Dynamic Standing Balance Ability Poor M5 PT-IP Objective Assessments Start: 03/07/18 16:00 Freq: Status: Active Protocol: Document 03/07/18 15:50 RCC (Rec: 03/07/18 16:16 RCC [id number]) Orientation Orientation/Cognition Level of Alertness Alert Orientation Name Place Situation Language Function Ability No Deficits Noted Safety Awareness Decreased Safety Awareness Strength Lower Extremity Strength Assessment Bilaterally Impaired Hip Hip flexion: L 3/5, R 2/5 Knee extension: L 3+/5, R 2+/5 Ankle DF: L 5/5, R 4/5 Coordination Assessment Gross Coordination Gross Coordination WNL Sensation Assessment Sensation Gross Sensation WNL Muscle Tone Muscle Tone WNL Yes M6 PT-IP Treatment Start: 03/07/18 16:00 Freq: Status: Active Protocol: Document 03/08/18 11:36 RS (Rec: 03/08/18 13:30 RS [id number]) Physical Therapy Treatment Exercises Exercises Ankle Pumps Gluteal Sets Quad Sets Heel Slides Supine Hip Abduction Education Education Provided Precautions Weight Bearing Status Post-Op Packet Safety Other Treatments Other Treatment Performed supine hip abd/add and heel slides were performed passively, then AA, then a few reps of active only. M7 PT-IP Assessment and Plan Start: 03/07/18 16:00 Freq: Status: Active Protocol: Document 03/08/18 15:20 RS (Rec: 03/08/18 15:25 RS [id number]) PT Summary Assessment and Plan Potential Rehabilitation Potential Good Status of Condition at Evaluation Evolving Summary Impairments Pain Strength Balance Bed Mobility Transfers Gait Activity Tolerance Progress Towards Goals Slow Progress due to Pain Assessment Summary Pt able to tolerate and more fully participate in mobility this session. It did require 2 person assist for transfers, but this is a significant improvement from yesterday. Continue to recommend pt transition to SNF when medically ready. Treatment Plan Other Recommendations and Next Treatment continue post-op exercises Focus first then attempt moblity Recommendations To Nursing Amount of Assist Needed 2 Person Assist Discharge Recommendations PT Discharge Recommendations SNF Rehab
--- NOTE | 2018-03-08 17:02 | OT.IP.EVAL ---
Current Diagnoses Displaced intertrochanteric fracture of right femur, initial encounter for closed fracture (03/06/18) Surgery Performed Operation Date: 03/07/18 07:05 Actual Procedures p ORIF Hip DHS(Right) - Carlyle Mckeon MD Past Medical History (Last Reviewed 03/07/18 @ 13:04 by Arley Pavon MD) COPD (chronic obstructive pulmonary disease) (Acute) Hypertension (Acute) Occupational Therapy Inpatient Evaluation/Re-Eval M1 PT/OT-IP Prior Functional Status Start: 03/07/18 16:00 Freq: Status: Active Protocol: Document 03/08/18 14:00 [facility] (Rec: 03/08/18 17:02 [facility] [id number]) Medical Review Prior Functional Status Medical History Reviewed Yes Diet/Fluid Consistency Regular Communication WNL Mobility and Gait Indep. ambulator without device, not much ambulation in community recently. Per family pt has history of multiple falls at home, usually while wearing her sandals thongs. Social History Household Members none Living Arrangements [facility] Home Environment High Toilet Walk in Shower Built-In Shower Seat Home Equipment Front Wheel Walker Grab Bars In Shower Employment Status Retired Additional Social History Comment Recently moved into [facility] 1 week ago from [facility]. No assistive devices. M2 OT-IP Current Condition Start: 03/08/18 16:34 Freq: Status: Active Protocol: Document 03/08/18 14:00 [facility] (Rec: 03/08/18 17:02 [facility] [id number]) Occupational Therapy Current Condition Current Condition Evaluation Date 03/08/18 Treatment Diagnosis Right hip fracture dispocation from fall Diagnosis Onset Date 03/06/18 Post Operative Precautions Other Precautions Touch-down weight-bearing x6 weeks RLE. Weight Bearing Status Weight Bearing Status Touch Down Weight Bearing M3 OT- IP Subjective and Pain Start: 03/08/18 16:34 Freq: Status: Active Protocol: Document 03/08/18 14:00 [facility] (Rec: 03/08/18 17:02 [facility] [id number]) OT- Subjective Occupational Therapy Visit Type Type Treatment Note Visit Start Time 14:00 Visit Stop Time 15:15 Total Visit Minutes 75 Occupational Therapy Visit Comments Patient Comments Pt agreeable to get up. Patient/Caregiver Goals Pt would like to be in less pain so able to do more for herself. OT Pain Assessment Pain When Pain Assessed At Rest Pain Present Pain Present Denied Pain M4 OT- IP ADL's Start: 03/08/18 16:34 Freq: Status: Active Protocol: Document 03/08/18 14:00 [facility] (Rec: 03/08/18 17:02 [facility] [id number]) OT ADL-Dressing General Eval Upper Body Dressing Ability Minimal Assistance Lower Body Dressing Ability Total Assistance Areas Needing Assistance Retrieving/Set-up of Clothing Managing Buttons Underpants/Brief Socks Comments OT Dressing Comments Pt dependent for LB dressing needs, right sock turned inside out so able to pivot her foot more easily for assist from therapists. Pt needing assist for buttons due to arthritis in hands. Explained AED for LB dressing and to dress RLE first and undress last. OT ADL-Toileting General Evaluation Toileting Ability Total Assistance Areas Needing Assistance Manage Clothing Perform Perineal Hygiene Devices Toileting Assistive Devices Commode Comments OT Toileting Comments MAX A X 3, one person to stand pt and another to manage for RLE , and another for pericare needs. OT ADL-Bathing Comments OT Bathing Comments No ready at this time and would be dependent with sponge bath. M6 OT- IP Functional Cognition Start: 03/08/18 16:34 Freq: Status: Active Protocol: Document 03/08/18 14:00 [facility] (Rec: 03/08/18 17:02 [facility] [id number]) Cognitive Factors Limiting Selfcare Function Cognitive Ability Level of Alertness Alert Patient Orientation Name Age Birthday Month Date Year Day of Week Place Situation Attention Span Ability Capable of Focused Attention Capable of Sustained Attention Unable to Sustain Attention Ability to Follow Commands Able to Follow One Step Commands Memory Description Immediate Intact Short Term Intact Safety Awareness Decreased Recall of Precautions Problem Solving Ability Needs Assist to Identify Solutions Cognitive Comments Cognitive Assessment Comments Pt gets very anxious and therefore has to ask and re- ask for directions during needs of functional mobility and needing step by step instruction and simple commands. OT- Vision and Hearing OT- Hearing Assessment OT- Hearing Assessment Hearing Impaired M7 OT- IP Mobility and Balance Start: 03/08/18 16:34 Freq: Status: Active Protocol: Document 03/08/18 14:00 [facility] (Rec: 03/08/18 17:02 [facility] [id number]) OT- Bed Mobility Assessment Rolling Type of Rolling Roll to Right Level of Assistance Maximum Assistance 2 Person Assistance Supine to Sit Supine to Sit Assist Total Assistance 2 Person Assistance Sit to Supine Sit to Supine Assist Total Assistance 2 Person Assistance Scooting Scooting to Edge of Bed Minimal Assistance OT-Transfer Assessment Sit to and From Stand Sit to and from Stand Maximum Assistance 2 Person Assistance Transfers Transfer Ability Maximum Assistance 2 Person Assistance Technique Transfer Destination Bed Bedside Commode Transfer Technique Stand Step Pivot Devices Transfer Assistive Devices None Gait Belt Comments Mobility Comments Attempted pt to stand to FWW MAX A X2, pt unable to follow TTWB for RLE, thererfore did stand pivot transfer one person for transfer and another to guide and keep her RLE to TTWB. OT- Gait Assessment Comments Gait Ability Comments No able to walk at this time. OT- Balance Assessment Sitting Balance and Reactions Static Sitting Balance Ability Fair Dynamic Sitting Balance Ability Fair Standing Balance and Reactions Static Standing Balance Ability Poor Dynamic Standing Balance Ability Poor M8 OT- IP Objective Assessments Start: 03/08/18 16:34 Freq: Status: Active Protocol: Document 03/08/18 14:00 [facility] (Rec: 03/08/18 17:02 [id number] Gross Range of Motion Upper Extremity Range of Motion ROM Impairments GRossly WFL for needs, arthritic changes in hands. OT Strength Comments Strength Comments 4/5 for BUE OT-Muscle Tone Assessment Comments Muscle Tone Comments WFL M9 OT- IP Assessment and Plan Start: 03/08/18 16:34 Freq: Status: Active Protocol: Document 03/08/18 14:00 [facility] (Rec: 03/08/18 17:02 [id number] OT Summary Assessment and Plan Potential Rehabilitation Potential Good Analytic Complexity at Evaluation Moderate Summary OT Impairments Pain Strength Balance Coordination Functional Cognition Functional Mobility Grooming Dressing Toileting Bathing Toilet Transfers Shower Transfers Progress Towards Goals Slow Progress due to Pain Slow Progress due to Medical Issues Slow Progress due to Activity Tolerance Assessment Summary Pt needing extensive assist 2- 3 persons for ADl's, functional mobility due to RLE TTWBx 6 weeks, in addition pt had decreased strength, endurance, activity tolerance, and needing lots of encouragement to participate. Pt will benefit from skilled rehab, prior pt was MOD I with all needs. Goals Grooming Goal Standby Assistance Dressing Goal Moderate Assistance Toileting Goal Moderate Assistance Bathing Goal Moderate Assistance Toilet Transfer Goal Moderate Assistance Shower Transfer Goal Moderate Assistance Patient/Caregiver Education Goal Demonstrate Post-Op Precautions Demonstrate Energy Conservation and Pacing OT-Other Goals Grooming goal while sitting in recliner. Days to Meet Goals 7 Frequency of Treatment Frequency Of Treatment Once a Day Treatment Plan OT Treatment Plan ADL Training Functional Cognition Training Functional Mobility Patient/Family Education Discharge Planning Other Treatment Recommendations and [place] [facility] show Treatment Focus pt AED for LB dressing. Discharge Recommendations OT Discharge Recommendations SNF Rehab Home Equipment Needs [facility]
--- NOTE | 2018-03-08 17:06 | OT.IP.EVAL ---
Current Diagnoses Displaced intertrochanteric fracture of right femur, initial encounter for closed fracture (03/06/18) Surgery Performed Operation Date: 03/07/18 07:05 Actual Procedures p ORIF Hip DHS(Right) - Carlyle Mckeon MD Past Medical History (Last Reviewed 03/07/18 @ 13:04 by Arley Pavon MD) COPD (chronic obstructive pulmonary disease) (Acute) Hypertension (Acute) Occupational Therapy Inpatient Evaluation/Re-Eval M1 PT/OT-IP Prior Functional Status Start: 03/07/18 16:00 Freq: Status: Active Protocol: Document 03/08/18 14:00 [facility] (Rec: 03/08/18 17:02 [facility] [id number]) Medical Review Prior Functional Status Medical History Reviewed Yes Diet/Fluid Consistency Regular Communication WNL Mobility and Gait Indep. ambulator without device, not much ambulation in community recently. Per family pt has history of multiple falls at home, usually while wearing her sandals thongs. Social History Household Members none Living Arrangements [facility] Home Environment High Toilet Walk in Shower Built-In Shower Seat Home Equipment Front Wheel Walker Grab Bars In Shower Employment Status Retired Additional Social History Comment Recently moved into [facility] 1 week ago from [facility]. No assistive devices. M2 OT-IP Current Condition Start: 03/08/18 16:34 Freq: Status: Active Protocol: Document 03/08/18 14:00 [facility] (Rec: 03/08/18 17:02 [facility] [id number]) Occupational Therapy Current Condition Current Condition Evaluation Date 03/08/18 Treatment Diagnosis Right hip fracture dispocation from fall Diagnosis Onset Date 03/06/18 Post Operative Precautions Other Precautions Touch-down weight-bearing x6 weeks RLE. Weight Bearing Status Weight Bearing Status Touch Down Weight Bearing M3 OT- IP Subjective and Pain Start: 03/08/18 16:34 Freq: Status: Active Protocol: Document 03/08/18 14:00 [facility] (Rec: 03/08/18 17:02 [facility] [id number]) OT- Subjective Occupational Therapy Visit Type Type Treatment Note Visit Start Time 14:00 Visit Stop Time 15:15 Total Visit Minutes 75 Occupational Therapy Visit Comments Patient Comments Pt agreeable to get up. Patient/Caregiver Goals Pt would like to be in less pain so able to do more for herself. OT Pain Assessment Pain When Pain Assessed At Rest Pain Present Pain Present Denied Pain M4 OT- IP ADL's Start: 03/08/18 16:34 Freq: Status: Active Protocol: Document 03/08/18 14:00 [facility] (Rec: 03/08/18 17:02 [facility] [id number]) OT ADL-Dressing General Eval Upper Body Dressing Ability Minimal Assistance Lower Body Dressing Ability Total Assistance Areas Needing Assistance Retrieving/Set-up of Clothing Managing Buttons Underpants/Brief Socks Comments OT Dressing Comments Pt dependent for LB dressing needs, rigth sock turned inside out so able to pivot her foot more easily for assist from therapists. Pt needing assist for buttons due to arthritis in hands. Explained AED for LB dressing and to dress RLE first and undress last. OT ADL-Toileting General Evaluation Toileting Ability Total Assistance Areas Needing Assistance Manage Clothing Perform Perineal Hygiene Devices Toileting Assistive Devices Commode Comments OT Toileting Comments MAX A X 3, one person to stand pt and another to manage for RLE , and another for pericare needs. OT ADL-Bathing Comments OT Bathing Comments No ready at this time and would be dependent with sponge bath. M6 OT- IP Functional Cognition Start: 03/08/18 16:34 Freq: Status: Active Protocol: Document 03/08/18 14:00 [facility] (Rec: 03/08/18 17:02 [facility] [id number]) Cognitive Factors Limiting Selfcare Function Cognitive Ability Level of Alertness Alert Patient Orientation Name Age Birthday Month Date Year Day of Week Place Situation Attention Span Ability Capable of Focused Attention Capable of Sustained Attention Unable to Sustain Attention Ability to Follow Commands Able to Follow One Step Commands Memory Description Immediate Intact Short Term Intact Safety Awareness Decreased Recall of Precautions Problem Solving Ability Needs Assist to Identify Solutions Cognitive Comments Cognitive Assessment Comments Pt gets very anxious and therefore has to ask and re- ask for directions during needs of functional mobility and needing step by step instruction and simple commands. OT- Vision and Hearing OT- Hearing Assessment OT- Hearing Assessment Hearing Impaired M7 OT- IP Mobility and Balance Start: 03/08/18 16:34 Freq: Status: Active Protocol: Document 03/08/18 14:00 [facility] (Rec: 03/08/18 17:02 [facility] [id number]) OT- Bed Mobility Assessment Rolling Type of Rolling Roll to Right Level of Assistance Maximum Assistance 2 Person Assistance Supine to Sit Supine to Sit Assist Total Assistance 2 Person Assistance Sit to Supine Sit to Supine Assist Total Assistance 2 Person Assistance Scooting Scooting to Edge of Bed Minimal Assistance OT-Transfer Assessment Sit to and From Stand Sit to and from Stand Maximum Assistance 2 Person Assistance Transfers Transfer Ability Maximum Assistance 2 Person Assistance Technique Transfer Destination Bed Bedside Commode Transfer Technique Stand Step Pivot Devices Transfer Assistive Devices None Gait Belt Comments Mobility Comments Attempted pt to stand to FWW MAX A X2, pt unable to follow TTWB for RLE, thererfore did stand pivot transfer one person for transfer and another to guide and keep her RLE to TTWB. OT- Gait Assessment Comments Gait Ability Comments No able to walk at this time. OT- Balance Assessment Sitting Balance and Reactions Static Sitting Balance Ability Fair Dynamic Sitting Balance Ability Fair Standing Balance and Reactions Static Standing Balance Ability Poor Dynamic Standing Balance Ability Poor M8 OT- IP Objective Assessments Start: 03/08/18 16:34 Freq: Status: Active Protocol: Document 03/08/18 14:00 [facility] (Rec: 03/08/18 17:02 [id number] OT Gross Range of Motion Upper Extremity Range of Motion ROM Impairments GRossly WFL for needs, arthritic changes in hands. OT Strength Comments Strength Comments 4/5 for BUE OT-Muscle Tone Assessment Comments Muscle Tone Comments WFL M9 OT- IP Assessment and Plan Start: 03/08/18 16:34 Freq: Status: Active Protocol: Document 03/08/18 14:00 [facility] (Rec: 03/08/18 17:02 [id number] OT Summary Assessment and Plan Potential Rehabilitation Potential Good Analytic Complexity at Evaluation Moderate Summary OT Impairments Pain Strength Balance Coordination Functional Cognition Functional Mobility Grooming Dressing Toileting Bathing Toilet Transfers Shower Transfers Progress Towards Goals Slow Progress due to Pain Slow Progress due to Medical Issues Slow Progress due to Activity Tolerance Assessment Summary Pt needing extensive assist 2- 3 persons for ADl's, functional mobility due to RLE TTWBx 6 weeks, in addition pt had decreased strength, endurance, activity tolerance, and needing lots of encouragement to participate. Pt will benefit from skilled rehab, prior pt was MOD I with all needs. Goals Grooming Goal Standby Assistance Dressing Goal Moderate Assistance Toileting Goal Moderate Assistance Bathing Goal Moderate Assistance Toilet Transfer Goal Moderate Assistance Shower Transfer Goal Moderate Assistance Patient/Caregiver Education Goal Demonstrate Post-Op Precautions Demonstrate Energy Conservation and Pacing OT-Other Goals Grooming goal while sitting in recliner. Pt to be able to do BUE exercises in the bed to help improve transfer function. Days to Meet Goals 7 Frequency of Treatment Frequency Of Treatment Once a Day Treatment Plan OT Treatment Plan ADL Training Functional Cognition Training Functional Mobility Patient/Family Education Discharge Planning Other Treatment Recommendations and Next Transfer to [facility] [place] with FWW, show Treatment Focus pt AED for LB dressing. Discharge Recommendations OT Discharge Recommendations SNF Rehab Home Equipment Needs [facility] [place]
[2018-03-08] MEDS: SODIUM CHLORIDE 0.9% FLUSH 10 ML IV (20:00)
[2018-03-09] VITALS (7 sets, daily range): BP systolic 120–152; BP diastolic 56–77; PULSE 78–86; RESP 16–18; TEMP 36.6–37.1; O2SAT 91–97
[2018-03-09] MEDS: hydrOXYzine pamoate 25 MG CAPSULE PO ×3 (01:03→11:53)
[2018-03-09] MEDS: OXYCODONE IR 10 MG TABLET PO ×5 (01:03→20:17)
--- NOTE | 2018-03-09 06:36 | PC.NURSE ---
Found patient sitting up on edge of bed. States she was just trying to help you out by getting started; states she has to go to the bathroom. Explained that currently is suppose to be a PT only transfer and that she needs to call for assistance when needing to have BM or urinate. Assisted back to lying position and bedpan placed. Bed alarm reactivated on highest setting.
--- NOTE | 2018-03-09 07:45 | PM.PNPO.1 ---
Subjective Date Patient Seen: 03/09/18 Time Patient Seen: 07:45 Interval history: Did better with physical therapy yesterday by her muscles are quite sore today. Exam Vital Signs (past 8 hours): Vital Signs - 8 hr 03/09/18 00:50 03/09/18 04:00 Temperature 98.5 F 98.3 F Pulse Rate 82 83 Respiratory Rate 18 18 Blood Pressure 120/68 146/74 H Pulse Oximetry 93 91 Pulse Oximetry 91 Oxygen Delivery Method Room Air Oxygen Flow Rate 0 Extrem Other: Dressing minimal dried drainage. Soft calf. Easily moves toes up down. Objective Labs Result Diagrams: 03/08/18 06:35 03/06/18 16:26 Assessment & Plan Post-op Postoperative Procedures Operation Date: 03/07/18 07:05 Actual Procedures Side Surgeon p ORIF Hip DHS Right Carlyle Mckeon MD Status post right hip ORIF. Continue mobilization with physical therapy. Probably discharge tomorrow to assisted. Time Spent With Patient less than 15 minutes Quality VTE Deep Vein Thrombosis/Pulmonary Embolism Present on Admission: Yes
[2018-03-09] MEDS: buPROPion SR 150 MG TAB PO ×2 (08:58→21:59)
[2018-03-09] MEDS: ASPIRIN EC 81 MG TABLET PO (08:58)
[2018-03-09] MEDS: DOCUSATE 100 MG CAPSULE PO ×2 (08:58→21:56)
[2018-03-09] MEDS: CARVEDILOL 6.25 MG TABLET PO ×2 (08:58→21:57)
[2018-03-09] MEDS: ENOXAPARIN 40 MG/0.4 ML SYRINGE SUBCUT (08:59)
[2018-03-09] MEDS: SODIUM CHLORIDE 0.9% FLUSH 10 ML IV ×2 (08:59→22:03)
[2018-03-09] MEDS: SERTRALINE 50 MG TABLET 100 MG PO (08:59)
[2018-03-09] MEDS: LISINOPRIL 20 MG TABLET PO ×2 (08:59→23:01)
[2018-03-09] MEDS: TIOTROPIUM BROMIDE 18 MCG INHALER INH (09:00)
--- NOTE | 2018-03-09 09:45 | PT.IPTN ---
Current Diagnoses Displaced intertrochanteric fracture of right femur, initial encounter for closed fracture (03/06/18) Surgery Performed Operation Date: 03/07/18 07:05 Actual Procedures p ORIF Hip DHS(Right) - Carlyle Mckeon MD Physical Therapy Treatment Note M2 PT-IP Current Condition Start: 03/07/18 16:00 Freq: Status: Active Protocol: Document 03/07/18 15:50 [facility] (Rec: 03/07/18 16:16 [facility] [id number]) Physical Therapy Current Condition Current Condition Evaluation Date 03/07/18 Treatment Diagnosis R hip ORIF 03/07/18, GLF, weakness Onset Date 03/06/18 Precautions Other Precautions Touch-down weight-bearing x6 weeks RLE. Weight Bearing Status Weight Bearing Status Touch Down Weight Bearing M3 PT-IP Subjective Start: 03/07/18 16:00 Freq: Status: Active Protocol: Document 03/09/18 15:31 AB (Rec: 03/09/18 15:32 AB [id number]) Subjective Physical Therapy Visit Type Type Patient Refusal Notes pt refused therapy. stated that she just finished her own therapy pointing to HEP. also said that she walked with 2 nurses and she wants to rest. asked if PT can check on her later and refused. M4 PT-IP Mobility and Gait Start: 03/07/18 16:00 Freq: Status: Active Protocol: Document 03/09/18 09:10 [facility] (Rec: 03/09/18 16:35 [facility] [id number]) PT-Bed Mobility Assessment Supine to Sit Supine to Sit Standby Assistance Head of Bed Elevated Bedrails Scooting Scooting to Edge of Bed Contact Guard Assistance PT-Transfer Assessment Sit to and From Stand Sit to and from Stand Maximum Assistance 2 Person Assistance Equipment Transfer Assistive Device Gait Belt Front Wheeled Walker Orthotic/Prosthetic Devices or Brace: No Transfers Transfer Destination Chair Bedside Commode Transfer Technique Stand Pivot Transfer Ability Level of Assist Maximum Assistance 2 Person Assistance Comments Mobility Comments Standing at FWW Max A for cueing standing for wiping Gait Assessment Comments Gait Comments not appropriate Stair Climbing Assessment Comments Stair Climbing Comments not appropriate PT-Balance Assessment Sitting Balance and Reactions Static Sitting Balance Ability Fair Dynamic Sitting Balance Ability Fair Standing Balance and Reactions Static Standing Balance Ability Poor Dynamic Standing Balance Ability Poor M5 PT-IP Objective Assessments Start: 03/07/18 16:00 Freq: Status: Active Protocol: Document 03/07/18 15:50 [facility] (Rec: 03/07/18 16:16 [facility] [id number]) Orientation Orientation/Cognition Level of Alertness Alert Orientation Name Place Situation Language Function Ability No Deficits Noted Safety Awareness Decreased Safety Awareness Strength Lower Extremity Strength Assessment Bilaterally Impaired Hip Hip flexion: L 3/5, R 2/5 Knee extension: L 3+/5, R 2+/5 Ankle DF: L 5/5, R 4/5 Coordination Assessment Gross Coordination Gross Coordination WNL Sensation Assessment Sensation Gross Sensation WNL Muscle Tone Muscle Tone WNL Yes M6 PT-IP Treatment Start: 03/07/18 16:00 Freq: Status: Active Protocol: Document 03/09/18 09:10 [facility] (Rec: 03/09/18 16:35 [facility] [id number]) Physical Therapy Treatment Exercises Exercises Ankle Pumps Gluteal Sets Seated Knee Flexion/Extension Other Treatments Other Treatment Performed Edu on importance of frequent exercises and mobility M7 PT-IP Assessment and Plan Start: 03/07/18 16:00 Freq: Status: Active Protocol: Document 03/09/18 09:10 [facility] (Rec: 03/09/18 16:35 [facility] [id number]) PT Summary Assessment and Plan Summary Progress Towards Goals Slow Progress due to Pain Slow Progress due to Activity Tolerance Frequency of Treatment Frequency Of Treatment Twice a Day Treatment Plan Other Recommendations and Next Treatment Cont to work on sit to stand Focus Recommendations To Nursing Amount of Assist Needed 2 Person Assist Discharge Recommendations PT Discharge Recommendations SNF Rehab
--- NOTE | 2018-03-09 11:31 | PM.PN.1 ---
Subjective Date Patient Seen: 03/09/18 Time Patient Seen: 07:32 Interval history: This is hospital day 4., postop day 2, following a right hip fracture with ORIF with plate and screws. Patient states her leg muscles are more sore today than in the previous secondary to using different muscle groups. Exam Vital Signs (past 8 hours): Vital Signs - 8 hr 03/09/18 04:00 03/09/18 08:00 Temperature 98.3 F 98.4 F Pulse Rate 83 86 Respiratory Rate 18 16 Blood Pressure 146/74 H 152/69 H Pulse Oximetry 91 97 Pulse Oximetry 97 Oxygen Delivery Method Room Air Oxygen Flow Rate 0 Const General: cooperative, healthy appearing, comfortable and well developed Nutritional Appearance: average body habitus Orientation: alert, awake and oriented x3 HENMT Head: normal to inspection, normocephalic and atraumatic Mouth: other Eyes General: appearance normal, both eyes and all related structures Neck Neck: normal visual inspection and supple Other: No JVD, or lymphadenopathy Chest Chest: normal inspection of the chest Resp Effort & Inspection: normal respiratory effort and able to speak in complete sentences Auscultation: clear to auscultation bilaterally Cardio Rate: regular rate Heart Sounds: S1 normal and S2 normal GI Inspection: normal to inspection Palpation: soft Auscultation: normal bowel sounds Other: Voiding clear richard urine Back/Spine/Pelvis Back: normal to inspection Skin General: no rashes or lesions noted, dry skin and warm Neuro General: alert, awake and oriented x3 Cognition: normal cognition Speech: speech normal Motor: muscle tone normal throughout Extrem Other: Right hip dressing dry and intact with small amounts of old serosanguineous drainage. ESTELA drain was in place with a total of 65 mL of drainage. Right calf and thigh are soft Psych Appearance: grossly normal Speech and Movement: speech and movement normal Mood: congruent mood Affect: normal affect Attitude: cooperative Thought Process: normal Thought Content: normal Judgment: judgment good Objective Labs Result Diagrams: 03/08/18 06:35 03/06/18 16:26 Assessment & Plan Plan: Assessment/Plan Narrative: 1. Right hip intertrochanteric fracture: Patient stable status post ORIF on 03/07/2018 with plate and screws. EBL in surgery was 50 mL. Continue postop pain management, physical therapy+OT. Will continue on Lovenox for 8 more days. 2. COPD: Stable. Continue routine inhalers. 3. Hypertension: BP adequately controlled. Continue routine medications. 4. Disposition: [facility] for further physical therapy and occupational therapy. Quality VTE Deep Vein Thrombosis/Pulmonary Embolism Present on Admission: Yes
--- NOTE | 2018-03-09 11:45 | P.PN_ITS ---
Subjective Date Patient Seen: 03/09/18 Time Patient Seen: 07:32 Interval history: This is hospital day 4., postop day 2, following a right hip fracture with ORIF with plate and screws. Patient states her leg muscles are more sore today than in the previous secondary to using different muscle groups. Exam Vital Signs (past 8 hours): Vital Signs - 8 hr 3 03/09/18 04:00 03/09/18 08:00 Temperature 98.3 F 98.4 F Pulse Rate 83 86 Respiratory Rate 18 16 Blood Pressure 146/74 H 152/69 H Pulse Oximetry 91 97 Pulse Oximetry 97 Oxygen Delivery Method Room Air Oxygen Flow Rate 0 Const General: cooperative, healthy appearing, comfortable and well developed Nutritional Appearance: average body habitus Orientation: alert, awake and oriented x3 HENMT Head: normal to inspection, normocephalic and atraumatic Mouth: other Eyes General: appearance normal, both eyes and all related structures Neck Neck: normal visual inspection and supple Other: No JVD, or lymphadenopathy Chest Chest: normal inspection of the chest Resp Effort & Inspection: normal respiratory effort and able to speak in complete sentences Auscultation: clear to auscultation bilaterally Cardio Rate: regular rate Heart Sounds: S1 normal and S2 normal GI Inspection: normal to inspection Palpation: soft Auscultation: normal bowel sounds Other: Voiding clear richard urine Back/Spine/Pelvis Back: normal to inspection Skin General: no rashes or lesions noted, dry skin and warm Neuro General: alert, awake and oriented x3 Cognition: normal cognition Speech: speech normal Motor: muscle tone normal throughout Extrem Other: Right hip dressing dry and intact with small amounts of old serosanguineous drainage. ESTELA drain was in place with a total of 65 mL of drainage. Right calf and thigh are soft Psych Appearance: grossly normal Speech and Movement: speech and movement normal Mood: congruent mood Affect: normal affect Attitude: cooperative Thought Process: normal Thought Content: normal Judgment: judgment good Objective Labs Result Diagrams: 03/08/18 06:35 03/06/18 16:26 Assessment & Plan Plan: Assessment/Plan Narrative: 1. Right hip intertrochanteric fracture: Patient stable status post ORIF on with plate and screws. EBL in surgery was 50 mL. Continue postop pain management, physical therapy+OT. Will continue on Lovenox for 8 more days. 2. COPD: Stable. Continue routine inhalers. 3. Hypertension: BP adequately controlled. Continue routine medications. 4. Disposition: Probable discharge to shelter facility for further physical therapy and occupational therapy. Quality VTE Deep Vein Thrombosis/Pulmonary Embolism Present on Admission: Yes
--- NOTE | 2018-03-09 13:30 | OT.IP.TRT ---
Current Diagnoses Displaced intertrochanteric fracture of right femur, initial encounter for closed fracture (03/06/18) Surgery Performed Operation Date: 03/07/18 07:05 Actual Procedures p ORIF Hip DHS(Right) - Carlyle Mckeon MD Occupational Therapy Treatment Note M2 OT-IP Current Condition Start: 03/08/18 16:34 Freq: Status: Active Protocol: Document 03/08/18 14:00 [facility] (Rec: 03/08/18 17:02 [facility] [id number]) Occupational Therapy Current Condition Current Condition Evaluation Date 03/08/18 Treatment Diagnosis Right hip fracture dislocation from fall Diagnosis Onset Date 03/06/18 Post Operative Precautions Other Precautions Touch-down weight-bearing x6 weeks RLE. Weight Bearing Status Weight Bearing Status Touch Down Weight Bearing M3 OT- IP Subjective and Pain Start: 03/08/18 16:34 Freq: Status: Active Protocol: Document 03/09/18 13:19 [facility] (Rec: 03/09/18 13:30 [facility] [id number]) OT- Subjective Occupational Therapy Visit Type Type Treatment Note Visit Start Time 09:05 Visit Stop Time 10:09 Total Visit Minutes 64 Notes Partial cotx with P.T. as 2 skilled assist needed for safe mobility this session. Occupational Therapy Visit Comments Patient Comments Don't let me fall!. Patient/Caregiver Goals to be strong enough to go home OT Pain Assessment Pain When Pain Assessed During Mobility Pain Present Pain Present Pain Reported Location Right Hip Intensity 8 Scale Used Numeric (1 - 10) Description Acute Pain Behaviors Facial Grimacing Guarding Management Techniques Distraction Re-positioning Timing of Activity with Medications M4 OT- IP ADL's Start: 03/08/18 16:34 Freq: Status: Active Protocol: Document 03/09/18 13:19 [facility] (Rec: 03/09/18 13:30 [facility] [id number]) OT [id number] General Evaluation Self-Feeding Ability Independent Comments OT Self-Feeding Comments poor appetite noted OT ADL-Dressing General Eval Lower Body Dressing Ability Maximum Assistance Areas Needing Assistance Underpants/Brief Comments OT Dressing Comments Began education re: use of deli cutter slicer to don and doff brief and provided demonstration re: sock aid and long shoe horn. Provided education to pt/son re: optimal clothing choices fro rehab setting. All equipt provided to pt at her request. OT ADL-Toileting General Evaluation Toileting Ability Total Assistance Areas Needing Assistance Perform Perineal Hygiene Devices Toileting Assistive Devices Commode Comments OT Toileting Comments One person assist for standing balance while second person performs hygiene. M6 OT- IP Functional Cognition Start: 03/08/18 16:34 Freq: Status: Active Protocol: Document 03/09/18 13:19 [facility] (Rec: 03/09/18 13:30 [facility] [id number]) Cognitive Factors Limiting Selfcare Function Cognitive Ability Level of Alertness Alert Cognitive Comments Cognitive Assessment Comments Pt needs max verbal cues to problem solve adapted mobility and self care techniques. Needs max cues for TTWB on RLE M7 OT- IP Mobility and Balance Start: 03/08/18 16:34 Freq: Status: Active Protocol: Document 03/09/18 13:19 [facility] (Rec: 03/09/18 13:30 [facility] [id number]) OT- Bed Mobility Assessment Rolling Level of Assistance Standby Assistance Scooting Scooting to Edge of Bed Standby Assistance OT-Transfer Assessment Sit to and From Stand Sit to and from Stand Moderate Assistance 2 Person Assistance Transfers Transfer Ability Moderate Assistance 2 Person Assistance Technique Transfer Destination Bedside Commode Chair Transfer Technique Stand Pivot Devices Transfer Assistive Devices Gait Belt Front Wheeled Walker Comments Mobility Comments Pt exiting bed with HOB fully elevated. Poor motor planning and needs max verbal cues for transfer techniques. OT- Gait Assessment Comments Gait Ability Comments Did not occur. OT- Balance Assessment Sitting Balance and Reactions Static Sitting Balance Ability Fair Dynamic Sitting Balance Ability Fair Standing Balance and Reactions Static Standing Balance Ability Poor Dynamic Standing Balance Ability Poor M8 OT- IP Objective Assessments Start: 03/08/18 16:34 Freq: Status: Active Protocol: Document 03/08/18 14:00 [facility] (Rec: 03/08/18 17:02 [facility] [id number]) OT Gross Range of Motion Upper Extremity Range of Motion ROM Impairments Grossly WFL for needs, arthritic changes in hands. OT Strength Comments Strength Comments 4/5 for BUE OT-Muscle Tone Assessment Comments Muscle Tone Comments WFL M9 OT- IP Assessment and Plan Start: 03/08/18 16:34 Freq: Status: Active Protocol: Document 03/09/18 13:19 [facility] (Rec: 03/09/18 13:30 [facility] [id number]) OT Summary Assessment and Plan Potential Rehabilitation Potential Good Summary OT Impairments Pain Balance Progress Towards Goals Progressing Toward Goals Assessment Summary Pt demonstrating improved bed mobility compared to yesterday . Still needs 2 person assist for transfers for safety. Pain and fear of falling interfere with pt performance. Pt needs max verbal cues to problem solve new techniques for mobility and self care but is motivated and has good potential to increase independence with practice. Goals Grooming Goal Standby Assistance Dressing Goal Moderate Assistance Toileting Goal Moderate Assistance Bathing Goal Moderate Assistance Toilet Transfer Goal Moderate Assistance Shower Transfer Goal Moderate Assistance Patient/Caregiver Education Goal Demonstrate Post-Op Precautions Demonstrate Energy Conservation and Pacing OT-Other Goals Grooming goal while sitting in recliner. Pt to be able to do BUE exercises in the bed to help improve transfer function. Frequency of Treatment Frequency Of Treatment Once a Day Treatment Plan OT Treatment Plan ADL Training Functional Cognition Training Functional Mobility Patient/Family Education Discharge Planning Other Treatment Recommendations and Next Transfer to [facility] with FWW, show Treatment Focus pt AED for LB dressing. Discharge Recommendations OT Discharge Recommendations SNF Rehab
--- NOTE | 2018-03-09 15:32 | PT.IPTN ---
Current Diagnoses Displaced intertrochanteric fracture of right femur, initial encounter for closed fracture (03/06/18) Surgery Performed Operation Date: 03/07/18 07:05 Actual Procedures p ORIF Hip DHS(Right) - Carlyle Mckeon MD Physical Therapy Treatment Note M2 PT-IP Current Condition Start: 03/07/18 16:00 Freq: Status: Active Protocol: Document 03/07/18 15:50 [facility] (Rec: 03/07/18 16:16 [facility] [id number]) Physical Therapy Current Condition Current Condition Evaluation Date 03/07/18 Treatment Diagnosis R hip ORIF 03/07/18, GLF, weakness Onset Date 03/06/18 Precautions Other Precautions Touch-down weight-bearing x6 weeks RLE. Weight Bearing Status Weight Bearing Status Touch Down Weight Bearing M3 PT-IP Subjective Start: 03/07/18 16:00 Freq: Status: Active Protocol: Document 03/09/18 15:31 AB (Rec: 03/09/18 15:32 AB [id number]) Subjective Physical Therapy Visit Type Type Patient Refusal Notes pt refused therapy. stated that she just finished her own therapy pointing to HEP. also said that she walked with 2 nurses and she wants to rest. asked if PT can check on her later and refused.
[2018-03-10 00:05] VITALS: BP 124/73; PULSE 86; RESP 18; TEMP 36.7; O2SAT 92
[2018-03-10] MEDS: OXYCODONE IR 10 MG TABLET PO ×3 (02:12→11:12)
[2018-03-10 04:00] VITALS: BP 103/65; PULSE 77; RESP 18; TEMP 36.7; O2SAT 92
[2018-03-10 06:15] LABS: Add Manual Diff / Slide Review NO; Basophils Percent Auto 0.3 % (0-2); Eosinophils Percent Auto 2.4 % (2-4); Hematocrit 22.9 % (36-46); Hemoglobin 8.1 g/dL (12.0-16.0); Lymphocytes Percent Auto 18.4 % (25-40); Mean Corpuscular HGB Conc 35.2 % (30-36); Mean Corpuscular Hemoglobin 32.5 PG (26-34); Mean Corpuscular Volume 92.3 fL (80-100); Monocytes Percent Auto 13.8 % (3-14); Neutrophils Absolute Auto 5100 /uL (3000-5900); Neutrophils Percent Auto 65.1 % (50-75); Platelet Count 228 X10^3/uL (150-400); Red Blood Cell Count 2.48 X10^6/uL (4.0-5.2); Red Cell Distribution Width 13.3 % (11.6-14.8); White Blood Cell Count 7.8 X10^3/uL (4.5-11.0)
[2018-03-10 06:19] LABS: Blood Urea Nitrogen 5 mg/dL (7-17); Carbon Dioxide 30 mmol/L (22-32); Chloride 98 mmol/L (98-107); Estimated Glomerular Filt Rate > 60.0 mL/min (>60); Glucose 86 mg/dL (80-110); HEMOLYSIS < 15 (0-50); Potassium 3.2 mmol/L (3.4-5.1); Sodium 135 mmol/L (137-145)
[2018-03-10 07:15] VITALS: BP 123/45; PULSE 92; RESP 18; O2SAT 96
--- NOTE | 2018-03-10 07:38 | P.PN_ITS ---
Subjective Date Patient Seen: 03/10/18 Time Patient Seen: 07:37 Interval history: Pt in bed. She was suppose to be d/c yesterday to SNF. She is s/p Rt hip ORIF with DHS for intertroch fracture by Dr. Mckeon PD 3. States she is having more rt hip pain after PT had her do exercises on the right leg. Having pain in Rt leg. Currently on oxycodone 5mg, 2 pills for pain. Exam Vital Signs (past 8 hours): Vital Signs - 8 hr 3 03/10/18 00:05 03/10/18 04:00 Temperature 98.1 F 98.1 F Pulse Rate 86 77 Respiratory Rate 18 18 Blood Pressure 124/73 H 103/65 Pulse Oximetry 92 92 Pulse Oximetry 92 Oxygen Delivery Method Room Air Oxygen Flow Rate 0 Narrative Exam Narrative: Pt in bed. Appears comfortable. A&O x3. Rt hip Aquacel dressing few few spots of blood but intact. NV status intact. Good Rt ankle strength. Bari calves soft and nontender. Objective Labs Result Diagrams: 03/10/18 05:55 03/10/18 05:55 Labs: Laboratory Results - last 24 hr 03/10/18 03/10/18 05:55 05:55 WBC 7.8 RBC 2.48 L Hgb 8.1 L Hct 22.9 L MCV 92.3 MCH 32.5 MCHC 35.2 RDW 13.3 Plt Count 228 Neut % (Auto) 65.1 Lymph % (Auto) 18.4 L [place] % (Auto) 13.8 Eos % (Auto) 2.4 Baso % (Auto) 0.3 Neut # (Auto) 5100 Sodium 135 L Potassium 3.2 L Chloride 98 Carbon Dioxide 30 BUN 5 L Creatinine 0.50 L Estimated GFR > 60.0 BUN/Creatinine Ratio 10.0 Glucose 86 Calcium 8.0 L Assessment & Plan Post-op (1) Closed hip fracture: Qualifiers: Encounter type: initial encounter Fracture healing: Laterality: right Qualified Code(s): S72.001A - Fracture of unspecified part of neck of right femur, initial encounter for closed fracture Current Visit: Yes Status: Acute (2) Hypertension: Current Visit: Yes Status: Acute (3) COPD (chronic obstructive pulmonary disease): Current Visit: Yes Status: Acute Postoperative Procedures Operation Date: 03/07/18 07:05 Actual Procedures Side Surgeon p ORIF Hip DHS Right Carlyle Mckeon MD Pt is PD3 S/P ORIF for Rt hip fracture. TTWB rt leg x6 weeks. F/U with Ortho in 10-14 days. Medical issues managed by hospital service. D/C to SNF when medically stable. Time Spent With Patient less than 15 minutes Quality VTE Deep Vein Thrombosis/Pulmonary Embolism Present on Admission: Yes
[2018-03-10 08:41] VITALS: BP 125/45; PULSE 92
[2018-03-10] MEDS: ASPIRIN EC 81 MG TABLET PO (08:41)
[2018-03-10] MEDS: ENOXAPARIN 40 MG/0.4 ML SYRINGE SUBCUT (08:41)
[2018-03-10] MEDS: DOCUSATE 100 MG CAPSULE PO (08:41)
[2018-03-10] MEDS: buPROPion SR 150 MG TAB PO (08:41)
[2018-03-10] MEDS: CARVEDILOL 6.25 MG TABLET PO (08:41)
[2018-03-10] MEDS: SERTRALINE 50 MG TABLET 100 MG PO (08:42)
[2018-03-10] MEDS: SODIUM CHLORIDE 0.9% FLUSH 10 ML IV (08:42)
[2018-03-10] MEDS: POTASSIUM CHLORIDE 20 MEQ TAB 40 MEQ PO (08:43)
[2018-03-10] MEDS: hydrOXYzine pamoate 25 MG CAPSULE PO (08:43)
[2018-03-10] MEDS: LISINOPRIL 20 MG TABLET PO (09:27)
[2018-03-10] MEDS: TIOTROPIUM BROMIDE 18 MCG INHALER INH (09:27)
--- NOTE | 2018-03-10 09:27 | CM.DPC ---
DCP: continued: case received. FELI Snyder states pt is ready for d/c to [facility] today. Reviewed notes and see that Tolu [facility] did auth this. Left her a vm now re d/c today. Spoke with [place]/[facility]. She is expecting pt and will look at van schedule for best time. Met with pt. She is aware of the d/c today. Says she can hardly move and frustrated re her slow progress. GANGA Elizalde is updated. P: [facility] today, will follow prn to fax orders etc. PASRR is faxed to [facility] now
[2018-03-10] MEDS: ALBUTEROL HFA 60 PUFF/8 GM INH INH (09:38)
[2018-03-10 09:40] VITALS: PULSE 83; O2SAT 97
--- NOTE | 2018-03-10 10:47 | PM.DS.1 ---
History of Present Illness Date Patient Seen: 03/10/18 Time Patient Seen: 08:47 Chief complaint: GLF Discharge Providers Date of admission: 03/06/18 19:55 Primary care physician: Maria Victoria Bustamante MD Consults: 03/07/18 10:06 Consult to Respiratory Therapy Evaluate & Treat Comment: Physician Instructions: Evaluate and treat 03/07/18 11:12 Consult to Discharge Planning Routine Comment: Consult to Physical Therapy Evaluate & Treat Comment: TDWB on RLE Physician Instructions: Evaluate and Treat Consult to Respiratory Therapy Evaluate & Treat Comment: Physician Instructions: Evaluate and treat 03/07/18 12:12 Consult to Orthopedic Surgery Routine Comment: Consulting Provider: Carlyle Mckeon Reason for consultation: R HIP FX Has provider been notified: Yes 03/08/18 08:42 Consult to Occupational Therapy Evaluate & Treat Comment: Physician Instructions: Evaluate and treat Discharge provider: FELI Lee Discharge Date: 03/10/18 Summary Discharge Diagnosis: 1. Intertrochanteric fracture: Open reduction internal fixation on March 07, 2018 2. Chronic COPD (stable) 3. Chronic hypertension 4. Anemia (acute) probably secondary to surgery Hospital Course: This note is the service summary of a 5 day hospitalization for this patient with an ground level fall resulting in a displaced right hip intertrochanteric fracture. She also underwent general anesthesia with open reduction internal fixation of the right hip fracture with plate screw system. Her estimated blood loss during surgery was 50 mL. There were no reported complications. She Is to have touchdown weight-bearing on the right lower extremity for 6 weeks. Postoperatively she developed moderate to severe right hip pain managed with p.o. narcotics. It has been a slow recovery for her related to physical therapy secondary to the pain. She continues to require 2 person assist to stand pivot news the chair commode. She subsequently developed an anemia probably secondary to surgery. Her hemoglobin went from 10.5-8.1. She is asymptomatic with stable vital signs. After discussing the option of blood transfusion with Dr. Bustamante it was felt that we could treat this patient with iron supplementation and monitor subsequent blood counts. During her hospitalization her chronic COPD and hypertension have not been an issue as she has been treated with her outpatient medications. Ms. Mason will benefit from physical therapy and occupational therapy at a detention facility and will be discharged today. Status at Discharge Functional status at discharge: uses cane/walker Overall status at discharge: patient is not back to baseline Time Spent with Patient Greater than 30 minutes Exam Vital Signs (past 8 hours): Vital Signs - 8 hr 03/10/18 04:00 03/10/18 07:15 03/10/18 08:41 Temperature 98.1 F Pulse Rate 77 92 H 92 H Respiratory Rate 18 18 Blood Pressure 103/65 123/45 H 125/45 H Pulse Oximetry 92 96 03/10/18 09:40 Temperature Pulse Rate 83 Respiratory Rate Blood Pressure Pulse Oximetry 97 Pulse Oximetry 97 Oxygen Delivery Method Room Air Oxygen Flow Rate 0 Narrative Exam Narrative: General: cooperative, healthy appearing, comfortable and well developed Nutritional Appearance: average body habitus Orientation: alert, awake and oriented x3 HENMT Head: normal to inspection, normocephalic and atraumatic Mouth: other Eyes General: appearance normal, both eyes and all related structures Neck Neck: normal visual inspection and supple Other: No JVD, or lymphadenopathy Chest Chest: normal inspection of the chest Resp Effort & Inspection: normal respiratory effort and able to speak in complete sentences Auscultation: clear to auscultation bilaterally Cardio Rate: regular rate Heart Sounds: S1 normal and S2 normal GI Inspection: normal to inspection Palpation: soft Auscultation: normal bowel sounds Other: Voiding clear richard urine Back/Spine/Pelvis Back: normal to inspection Skin General: no rashes or lesions noted, dry skin and warm Neuro General: alert, awake and oriented x3 Cognition: normal cognition Speech: speech normal Motor: muscle tone normal throughout. Good dorsiflexion and plantar flexion strength noted bilaterally in lower extremities. Unable to lift her right leg off the bed. Extrem Other: Right hip dressing dry and intact with small amounts of old serosanguineous drainage. ESTELA drain was removed yesterday. Right calf and thigh are soft, although the right thigh is larger in circumference when compared to the left. Distal extremities warm, dry, and have good peripheral pulses. Psych Appearance: grossly normal Speech and Movement: speech and movement normal Mood: congruent mood Affect: normal affect Attitude: cooperative Thought Process: normal Thought Content: normal Judgment: judgment good Objective Labs Result Diagrams: 03/10/18 05:55 03/10/18 05:55 Labs: Laboratory Results - last 24 hr WBC 7.8 RBC 2.48 L Hgb 8.1 L Hct 22.9 L MCV 92.3 MCH 32.5 MCHC 35.2 RDW 13.3 Plt Count 228 Neut % (Auto) 65.1 Lymph % (Auto) 18.4 L Carson % (Auto) 13.8 Eos % (Auto) 2.4 Baso % (Auto) 0.3 Neut # (Auto) 5100 Sodium 135 L Potassium 3.2 L Chloride 98 Carbon Dioxide 30 BUN 5 L Creatinine 0.50 L Estimated GFR > 60.0 BUN/Creatinine Ratio 10.0 Glucose 86 Calcium 8.0 L PROCEDURE: XR HIP W PEL IF DONE RT 2V INDICATIONS: 77 year-old female with right hip deformity after fall. TECHNIQUE: AP pelvis with lateral view(s) of the right hip(s). COMPARISON: None. FINDINGS: Bones: Comminuted intertrochanteric fracture of the proximal right femur is present, with varus angulation of the distal fracture component. Pelvic ring appears intact. No suspicious bony lesions. Soft tissues: The visualized bowel gas pattern is normal. No suspicious soft tissue calcifications. IMPRESSION: Comminuted intertrochanteric fracture of the right hip. Dictated by: Iván Vera M.D. on 03/06/2018 at 18:20 Approved by: Iván Vera M.D. on 03/06/2018 at 18:21 Discharge Plan Discharge Plan Patient Disposition: SNF Transfer to: [facility] Transportation: Wheelchair Labs: Repeat CBC and BMP on 12 March 2018 I certify the postop hospital detention care is medically necessary on a continuing basis for any conditions for which he/ she received care during this hospitalization.: Yes The receiving facility has agreed to accept transfer and provide medical treatment.: Yes Discharge Health Status Precautions: [facility] Provider Discharge Instructions Diet: Diet as Tolerated and Regular Food texture: Regular Activity: Encouraged ambulation with assistance. Touchdown weight-bearing x6 weeks on the right lower extremity. Cold/Heat Therapy: Cold packs to right hip for comfort. Oxygen: Room air [facility] Reason for rehabilitation: Post-operative therapy and Recovery r/t decondition Rehab type: Physical therapy and Occupational therapy Restrictions to mobility: Walker, gait belt, assistance Discharge Data Primary Care Provider: Maria Victoria Bustamante Attending Provider: Arley Pavon Admit Date/Time: 03/06/18 19:55 Quality VTE Deep Vein Thrombosis/Pulmonary Embolism Present on Admission: Yes
--- NOTE | 2018-03-10 11:38 | PT.IPTN ---
Current Diagnoses Essential (primary) hypertension (03/06/18) Chronic obstructive pulmonary disease, unspecified (03/06/18) Fracture of unspecified part of neck of right femur, initial encounter for closed fracture (03/06/18) Displaced intertrochanteric fracture of right femur, initial encounter for closed fracture (03/06/18) Surgery Performed Operation Date: 03/07/18 07:05 Actual Procedures p ORIF Hip DHS(Right) - Carlyle Mckeon MD Physical Therapy Treatment Note M2 PT-IP Current Condition Start: 03/07/18 16:00 Freq: Status: Discharge Protocol: Document 03/07/18 15:50 RCC (Rec: 03/07/18 16:16 RCC [id number]) Physical Therapy Current Condition Current Condition Evaluation Date 03/07/18 Treatment Diagnosis R hip ORIF 03/07/18, GLF, weakness Onset Date 03/06/18 Precautions Other Precautions Touch-down weight-bearing x6 weeks RLE. Weight Bearing Status Weight Bearing Status Touch Down Weight Bearing M3 PT-IP Subjective Start: 03/07/18 16:00 Freq: Status: Discharge Protocol: Document 03/10/18 10:10 GGD (Rec: 03/10/18 11:38 GGD [id number]) Subjective Physical Therapy Visit Type Type Treatment Note Visit Start Time 09:45 Visit Stop Time 10:10 Total Visit Minutes 25 Physical Therapy Visit Comments Patient Comments Pt needs to go to the [facility]. Therapy Pain Assessment Pain When Pain Assessed At Rest Pain Present Pain Present Pain Reported Location Right Hip Intensity 7 Scale Used Numeric (1 - 10) Pain Behaviors Calling Out Facial Grimacing Moaning Wincing M4 PT-IP Mobility and Gait Start: 03/07/18 16:00 Freq: Status: Discharge Protocol: Document 03/10/18 10:10 GGD (Rec: 03/10/18 11:38 GGD [id number]) PT-Bed Mobility Assessment Supine to Sit Supine to Sit Minimal Assistance Head of Bed Elevated Bedrails Scooting Scooting to Edge of Bed Minimal Assistance PT-Transfer Assessment Sit to and From Stand Sit to and from Stand Moderate Assistance 1 Person Assistance Use of Upper Extremities Equipment Transfer Assistive Device Gait Belt Front Wheeled Walker Transfers Transfer Destination Chair Bedside Commode Transfer Technique Stand Pivot Transfer Ability Level of Assist Moderate Assistance 2 Person Assistance M5 PT-IP Objective Assessments Start: 03/07/18 16:00 Freq: Status: Discharge Protocol: Document 03/07/18 15:50 RCC (Rec: 03/07/18 16:16 RCC [id number]) Orientation Orientation/Cognition Level of Alertness Alert Orientation Name Place Situation Language Function Ability No Deficits Noted Safety Awareness Decreased Safety Awareness Strength Lower Extremity Strength Assessment Bilaterally Impaired Hip Hip flexion: L 3/5, R 2/5 Knee extension: L 3+/5, R 2+/5 Ankle DF: L 5/5, R 4/5 Coordination Assessment Gross Coordination Gross Coordination WNL Sensation Assessment Sensation Gross Sensation WNL Muscle Tone Muscle Tone WNL Yes M6 PT-IP Treatment Start: 03/07/18 16:00 Freq: Status: Discharge Protocol: Document 03/09/18 09:10 LR (Rec: 03/09/18 16:35 [facility] [id number]) Physical Therapy Treatment Exercises Exercises Ankle Pumps Gluteal Sets Seated Knee Flexion/Extension Other Treatments Other Treatment Performed Edu on importance of frequent exercises and mobility M7 PT-IP Assessment and Plan Start: 03/07/18 16:00 Freq: Status: Discharge Protocol: Document 03/10/18 10:10 GGD (Rec: 03/10/18 11:38 GGD [id number]) PT Summary Assessment and Plan Summary Assessment Summary Pt improved with mobility and needed less assist for sit to stand. She is impulsive and need cues. Frequency of Treatment Frequency Of Treatment Twice a Day Treatment Plan Other Recommendations and Next Treatment Cont to work on sit to stand, Focus transfers. Recommendations To Nursing Amount of Assist Needed 2 Person Assist Discharge Recommendations PT Discharge Recommendations SNF Rehab
--- NOTE | 2018-03-10 14:43 | OT.IP.TRT ---
Current Diagnoses Essential (primary) hypertension (03/06/18) Chronic obstructive pulmonary disease, unspecified (03/06/18) Fracture of unspecified part of neck of right femur, initial encounter for closed fracture (03/06/18) Displaced intertrochanteric fracture of right femur, initial encounter for closed fracture (03/06/18) Surgery Performed Operation Date: 03/07/18 07:05 Actual Procedures p ORIF Hip DHS(Right) - Carlyle Mckeon MD Occupational Therapy Treatment Note M3 OT- IP Subjective and Pain Start: 03/08/18 16:34 Freq: Status: Active Protocol: Document 03/10/18 14:37 PJM (Rec: 03/10/18 14:43 PJM [id number]) OT- Subjective Occupational Therapy Visit Type Type Treatment Note Visit Start Time 10:26 Visit Stop Time 10:55 Total Visit Minutes 29 Occupational Therapy Visit Comments Patient Comments Will I ever get better? Patient/Caregiver Goals to have less pain and be able to walk OT Pain Assessment Pain When Pain Assessed After Treatment Pain Present Pain Present Pain Reported Location Right Hip Intensity 5 Scale Used Numeric (1 - 10) Description Acute Management Techniques Distraction Re-positioning Timing of Activity with Medications M4 OT- IP ADL's Start: 03/08/18 16:34 Freq: Status: Active Protocol: Document 03/10/18 14:37 PJM (Rec: 03/10/18 14:43 PJM [id number]) OT [id number] General Evaluation Self-Feeding Ability Independent Comments OT Self-Feeding Comments appetite remains poor OT ADL-Grooming General Evaluation Grooming Ability Standby Assistance Areas Needing Assistance Retrieving/Set-up of Grooming Items Combing/Brushing Hair Face Washing Comments OT Grooming Comments pt set up in chair for grooming tasks OT ADL-Oral Care General Eval Oral Care Ability Standby Assistance Comments Oral Care Comments Pt needs min cues to problem solve set up in unfamiliar setting. Unorganized approach to task. OT ADL-Dressing General Eval Lower Body Dressing Ability Moderate Assistance Areas Needing Assistance Socks Comments OT Dressing Comments Began education and practice with use of metal machine operator and hard sock aid for lower body dressing with pt requiring mod assist and mod cues for use of unfamiliar AED. M9 OT- IP Assessment and Plan Start: 03/08/18 16:34 Freq: Status: Active Protocol: Document 03/10/18 14:37 PJM (Rec: 03/10/18 14:43 PJM [id number]) OT Summary Assessment and Plan Potential Rehabilitation Potential Good Summary OT Impairments Pain Balance Functional Mobility Grooming Dressing Toileting Bathing Toilet Transfers Shower Transfers Progress Towards Goals Progressing Toward Goals Assessment Summary Pt needs encouragement to engage in self care tasks as she is feeling discouraged today. However, good participation in training with use AED for adapted lower body dressing techniques. Pt has good potential to increase independence as pain level decreases. Pt plans to discharge today to SNF for further rehab services.
== END 2018-03-10 11:32 | DRG 482 ==
LOC: ED 19:24 → AC 19:56
PROVIDERS: Nurse Practitioner Acute Care; Orthopaedic Surgery; Admitting Provider Internal Medicine; Emergency Provider Emergency Medicine; Family Provider Internal Medicine; PCP Internal Medicine; Visit Provider Internal Medicine
PROC: 0QS604Z Reposition Right Upper Femur with Internal Fixation Device, Open Approach (ICD-10-PCS; principal; 2018-03-07 07:05)
DX: S72.141A Displaced intertrochanteric fracture of right femur, initial encounter for closed fracture (principal); W18.39XA Other fall on same level, initial encounter; F17.210 Nicotine dependence, cigarettes, uncomplicated; I10 Essential (primary) hypertension; J44.9 Chronic obstructive pulmonary disease, unspecified; D64.9 Anemia, unspecified; F10.20 Alcohol dependence, uncomplicated
CPT/HCPCS: 36415; 36591; 51701; 71045; 73502; 76001; 80048; 85014; 85018; 85025; 94640; 94760; 96374; 96375; 96376; 97110; 97162; 97165; 97530; 97535; 99283; 99284; 99406; C9290; J0690; J1100; J1170; J1650; J2250; J2270; J2405; J2704; J3010; J7613

== ENCOUNTER → 2018-04-19 10:07 | Outpatient (CLI) | payer OTHER, SELFPAY ==
[2018-03-06 22:30] VITALS: BMI 19.5
== END ==
PROVIDERS: Family Provider Internal Medicine; PCP Internal Medicine; Visit Provider Internal Medicine
DX: M81.0 Age-related osteoporosis without current pathological fracture (principal); Z78.0 Asymptomatic menopausal state; Z82.62 Family history of osteoporosis
CPT/HCPCS: 77080

== ENCOUNTER → 2018-08-25 18:01 | Outpatient (REF) | payer OTHER, SELFPAY ==
[2018-03-06 22:30] VITALS: BMI 19.5
== END ==
LOC: LAB 18:01
PROVIDERS: Family Provider Internal Medicine; PCP Internal Medicine; Visit Provider Physician Assistant
DX: D48.5 Neoplasm of uncertain behavior of skin (principal); L30.4 Erythema intertrigo; L24.9 Irritant contact dermatitis, unspecified cause; L57.0 Actinic keratosis; L82.1 Other seborrheic keratosis
CPT/HCPCS: 87070; 87075; 87077; 87186; 87205

== ENCOUNTER → 2018-09-24 10:14 | Oncology outpatient (ONC) | payer OTHER, SELFPAY ==
[2018-03-06 22:30] VITALS: BMI 19.5
[2018-09-24] MEDS: ZOLEDRONIC ACID 5 MG in SODIUM CHLORIDE 0.9% 100 ML 318.75 ML IV (11:14)
[2018-09-24 11:19] VITALS: BP 129/76; PULSE 98; RESP 20; TEMP 36.8; O2SAT 94
== END ==
LOC: ONC 10:16
PROVIDERS: Family Provider Internal Medicine; PCP Internal Medicine; Visit Provider Internal Medicine
DX: M81.0 Age-related osteoporosis without current pathological fracture (principal)
CPT/HCPCS: 96374; J3489

== ENCOUNTER → 2018-10-05 12:19 | Outpatient (CLI) | payer OTHER, SELFPAY ==
[2018-03-06 22:30] VITALS: BMI 19.5
--- NOTE | 2018-10-05 | DI.RAD.S_ITS ---
PROCEDURE: XR CHEST 2V INDICATIONS: Chronic obstructive pulmonary disease, unspecified TECHNIQUE: 2 views of the chest were acquired. COMPARISON: [facility], CT, THORAX WITHOUT CONTRAST, 06/15/2015, 10:25. [facility], CR, CHEST 2 VIEW, 05/31/2017, 10:50. [facility], CR, XR CHEST 1V, 03/06/2018, 17:24. FINDINGS: Surgical changes and devices: None. Lungs and pleura: No pleural effusions or pneumothorax. Lungs are clear. Lungs are hyperinflated. Mediastinum: Mediastinal contours are normal. Heart size is normal. Bones and chest wall: No suspicious bony abnormalities. Soft tissues appear unremarkable. IMPRESSION: No acute pulmonary process. Dictated by: Cheyenne Garcia M.D. on 10/05/2018 at 17:21 Approved by: Cheyenne Garcia M.D. on 10/05/2018 at 17:22
== END ==
PROVIDERS: Family Provider Internal Medicine; PCP Internal Medicine; Visit Provider Internal Medicine
DX: J44.9 Chronic obstructive pulmonary disease, unspecified (principal)
CPT/HCPCS: 71046

== ENCOUNTER → 2018-10-08 18:15 | Outpatient (REF) | payer OTHER, SELFPAY ==
[2018-03-06 22:30] VITALS: BMI 19.5
== END ==
LOC: LAB 18:15
PROVIDERS: Family Provider Internal Medicine; PCP Internal Medicine; Visit Provider Physician Assistant
DX: R21 Rash and other nonspecific skin eruption (principal)
CPT/HCPCS: 87070; 87075; 87205

== ENCOUNTER → 2019-01-27 08:25 | Outpatient (CLI) | payer OTHER, SELFPAY ==
[2018-03-06 22:30] VITALS: BMI 19.5
--- NOTE | 2019-01-27 | DI.MRI.S_ITS ---
PROCEDURE: MR PELVIS WO CON INDICATIONS: MALIGNANT NEOPLASM OF SKIN TECHNIQUE: Coronal HASTE, sagittal breath-hold T2 FSE; axial T1 FSE with and without fat saturation through the pelvis. Optional long- and short-axis uterine nonbreath-hold T2 FSE through the uterus. Sagittal or axial dynamic VIBE during administration of contrast. COMPARISON: [facility], CT, CT CHEST ABD PEL W CON, 01/27/2019, 10:34. [facility] [place], CR, XR PELVIS WITH LATERAL HIP RIGHT, 06/30/2018, 14:35. FINDINGS: Image quality: Suboptimal secondary to right proximal femur fixation hardware. Uterus: Not identified. Adnexa: No gross adnexal lesion. Urinary system: Bladder wall is normal in thickness. Distal ureters are non distended. Urethra appears normal in morphology. Nodes and vessels: No pelvic or inguinal adenopathy by size criteria. Iliac vessels are normal in size. Bowel and peritoneum: No pathologic free pelvic fluid. Inferior colon and small bowel loops are normal in caliber. Colonic diverticulosis is seen without evidence of acute complication. Soft tissues: No inguinal hernias. No findings of pelvic floor incompetence in the absence of provocation. Bones: Marrow demonstrates normal overall signal. 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 IMPRESSION: Overall, grossly unremarkable unenhanced examination. No discrete mass or evidence of metastatic disease seen. Limited assessment however given the absence of contrast-enhancement pulse sequences. Dictated by: Keon Thompson M.D. on 01/27/2019 at 11:33 Approved by: Keon Thompson M.D. on 01/27/2019 at 11:40
--- NOTE | 2019-01-27 | DI.CT.S_ITS ---
PROCEDURE: CT CHEST ABD PEL W CON INDICATIONS: MALIGNANT NEOPLASM OF SKIN TECHNIQUE: After the administration of oral and intravenous contrast, 5 mm thick sections acquired from the lung apices to the symphysis. 5 mm coronal and sagittal reformats were performed, with additional 7 mm coronal MIP reformats through the lungs. For radiation dose reduction, the following was used: automated exposure control, adjustment of mA and/or kV according to patient size. COMPARISON: [facility], RG, CT IVP, 05/12/2006, 9:36. [facility], CT, THORAX WITHOUT CONTRAST, 10/20/2017, 9:15. FINDINGS: Image quality: Excellent. CHEST: Lungs and pleura: No acute airspace opacities. No pleural effusions or pneumothorax. Central and peripheral airways appear patent and normal in caliber. Mediastinum: Heart size is normal. There is calcification of the coronary vasculature. No pericardial effusion. No mediastinal or hilar adenopathy by size criteria. Thoracic aorta and central pulmonary arteries are normal in size. Esophagus is normal in caliber. No hiatal hernia. Chest wall: No axillary or supraclavicular adenopathy by size criteria. Thyroid gland demonstrates a 7 mm nodule within the right lobe which is hypodense. ABDOMEN: Solid organs: Liver is normal in size and enhancement. Gallbladder is within normal limits. Biliary system is non dilated. Pancreas enhances normally. Spleen is normal in size and enhancement. No adrenal nodules. Kidneys demonstrate normal size and enhancement, without hydronephrosis. Peritoneum and bowel: Bowel loops demonstrate normal wall thickness and caliber. No free fluid or air. Nodes and vessels: No retroperitoneal or mesenteric adenopathy by size criteria. Aorta and inferior vena cava are normal in size. Miscellaneous: No ventral hernias. PELVIS: Genitourinary: Bladder wall thickness is normal. Miscellaneous: No inguinal hernias or adenopathy. Bones: No suspicious bony lesions. No vertebral body compression fractures. ORIF of the right femoral neck. IMPRESSION: 1. No evidence of malignancy. 2. Coronary artery disease. 3. Right thyroid nodule, which could be further assessed with ultrasound, if clinically indicated. Dictated by: Robin Andrews M.D. on 01/27/2019 at 11:43 Approved by: Robin Andrews M.D. on 01/27/2019 at 11:55
[2019-01-27 09:14] LABS: Estimated Glomerular Filt Rate > 60.0 mL/min (>60)
== END ==
PROVIDERS: Surgery; PCP Internal Medicine
DX: C44.99 Other specified malignant neoplasm of skin, unspecified (principal); I25.10 Atherosclerotic heart disease of native coronary artery without angina pectoris; E04.1 Nontoxic single thyroid nodule; K57.90 Diverticulosis of intestine, part unspecified, without perforation or abscess without bleeding
CPT/HCPCS: 36415; 71260; 72195; 74177; 82565; Q9967

== ENCOUNTER 2019-01-29 12:04 | Emergency (ER) | payer OTHER, SELFPAY ==
[2018-03-06 22:30] VITALS: BMI 19.5
[2019-01-29 12:23] VITALS: BP 156/79; PULSE 108; RESP 24; TEMP 37.2; O2SAT 96
--- NOTE | 2019-01-29 12:36 | ED_ITS ---
HPI - Neck Pain/Injury <Nina Gilbert PA-C - Last Filed: 01/29/19 19:14> General Chief Complaint: Neck Pain/Injury Stated Complaint: GLANDS ARE SWOLLEN Time Seen by Provider: 01/29/19 12:31 Source: patient Mode of arrival: ambulatory Limitations: no limitations History of Present Illness HPI Narrative: This 78-year-old female comes to ED due to waking up with swollen glands this morning. She states she has been ?fighting? sinus symptoms, with nasal and sinus congestion and postnasal drip for maybe the last couple of weeks. Swollen glands are new today. She denies noticing any swollen glands elsewhere. She denies any new dyspnea or worsening cough (has COPD). She denies chest pain. She denies fever, chills, sweats. She denies any night sweats or weight loss. 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 She had multiple scans done here a few days ago and has not heard res ults. She denies any other complaints on systems review, states that postnasal drip makes it a little bit difficult for her to swallow but no change, drink her usual shake this morning. Related Data Home Medications Medication Instructions Recorded Confirmed albuterol sulfate 2 puff INHALATION Q4-6H PRN 03/06/18 03/06/18 aspirin 81 mg PO DAILY 03/06/18 03/06/18 bupropion HCl [Wellbutrin SR] 150 mg PO BID 03/06/18 03/06/18 carvedilol 6.25 mg PO BID 03/06/18 03/06/18 docusate sodium 100 mg PO BID PRN 03/06/18 03/06/18 fenofibrate 54 mg PO DAILY 03/06/18 03/06/18 lisinopril 20 mg PO BID 03/06/18 03/06/18 sertraline 100 mg PO DAILY 03/06/18 03/06/18 beclomethasone dipropionate [Qvar] 1 puff INHALATION QAM 03/07/18 03/07/18 tiotropium bromide [Spiriva with 1 cap INHALATION DAILY 03/07/18 03/07/18 HandiHaler] Previous Rx's Medication Instructions Recorded ferrous gluconate 324 mg PO DAILY #30 tab 03/10/18 oxycodone 10 mg PO Q3HR PRN #60 tab 03/10/18 Allergies Allergy/AdvReac Type Severity Reaction Status Date / Time Sulfa (Sulfonamide Allergy Intermediate RASH Verified 03/06/18 21:06 Antibiotics) [SULFA (SULFONAMIDE ANTIBIOTICS)] Review of Systems <Nina Gilbert PA-C - Last Filed: 01/29/19 19:14> Review of Systems ROS Unobtainable: All systems reviewed & are unremarkable except as noted in HPI and below PFSH <Nina Gilbert PA-C - Last Filed: 01/29/19 19:14> Medical History (Updated 01/29/19 @ 13:02 by Nina Gilbert PA-C) Osteoporosis (Chronic) Nicotine dependence (Chronic) ETOH abuse (Chronic) Depression (Chronic) COPD (chronic obstructive pulmonary disease) (Chronic) Hypertension (Chronic) Closed hip fracture (Resolved) Extra mammary Paget disease (Chronic) Surgical History (Updated 01/29/19 @ 12:34 by Nina Gilbert PA-C) Status post hysterectomy (Resolved) Social History household members: none Smoking Status: Current every day smoker Social History household members: none Smoking Status: Current every day smoker Exam <Nina Gilbert PA-C - Last Filed: 01/29/19 19:14> Narrative Exam Narrative: GENERAL APPEARANCE: Patient sitting comfortably, in no distress. HEAD: No sinus TTP. EYES: PERRL, EOMI. EARS: Normal auditory canals, TMS intact with normal light reflexes. ORAL CAVITY: Normal oropharynx. THROAT: Thick postnasal drip noted, no erythema or exudate NECK/THYROID: Neck supple, full range of motion, symmetric submandibular lymphadenopathy, both approximately 1 cm, mildly tender. No sublingular nodes or d/c. No anterior or posterior cervical nodes, no supraclavicular nodes or axillary nodes palpable. LUNGS: Breath sounds coarse, no wheezes or crackles, no cough on exam. HEART: RRR without murmur, occasional skipped, nl S1, S2, no S3 or S4. ABDOMEN: Soft, nontender, nondistended EXTREMITIES: No edema Initial Vital Signs Initial Vital Signs: Vital Signs Temperature 99.0 F 01/29/19 12:23 Pulse Rate 108 H 01/29/19 12:23 Respiratory Rate 24 01/29/19 12:23 Blood Pressure 156/79 H 01/29/19 12:23 Pulse Oximetry 96 01/29/19 12:23 <Guillermina Osman DO - Last Filed: 02/01/19 00:04> Initial Vital Signs Initial Vital Signs: Vital Signs Temperature 99.0 F 01/29/19 12:23 Pulse Rate 108 H 01/29/19 12:23 Respiratory Rate 24 01/29/19 12:23 Blood Pressure 156/79 H 01/29/19 12:23 Pulse Oximetry 96 01/29/19 12:23 Course <Nina Gilbert PA-C - Last Filed: 01/29/19 19:14> Additional Information: Discussed with patient her symmetric lymphadenopathy is most likely due to recent sinus symptoms since there is a time correlation and glands are a bit tender. She does not appear acutely ill. I did briefly review findings of her scans with her as she was quite anxious, advised of need to follow up with Oncology, and she is agreeable. Vital Signs - 8 hr 01/29/19 12:23 Temperature 99.0 F Pulse Rate 108 H Respiratory Rate 24 Blood Pressure 156/79 H Pulse Oximetry 96 <DO Soren Womack Last Filed: 02/01/19 00:04> Vital Signs - 8 hr 01/29/19 12:23 Temperature 99.0 F Pulse Rate 108 H Respiratory Rate 24 Blood Pressure 156/79 H Pulse Oximetry 96 Discharge Plan Departure Patient Disposition: Home Clinical Impression: Submandibular lymphadenopathy, Post-nasal drip Discharge Date/Time: 01/29/19 13:11 Interventions: ED Discharge Assessment Last Done: 01/29/19 13:11 Instructions: DI for Lymphadenopathy Activity Restrictions/Additional Instructions: You should return to the emergency room if you have any acutely worsening symptoms. otherwise, since your sinus pressure and postnasal drip have been bothersome, you can try an over the counter antihistamine, such as Zyrtec (Cetirizine, 10mg) once daily, and you can use the [id number] steroid spray that you have at home (i.e. Flonase/fluticasone is a common one). It is common to have swollen gland as a reaction to illness or inflammation, and since it is correlated with your sinus symptoms, this is most likely the cause. Please monitor, and follow up with your PCP next week. If these are enlarging more or you have new symptoms such as fevers, difficulty breathing, or sweats, you should be seen right away. Prescriptions: No Action carvedilol 6.25 mg Tablet 6.25 mg PO BID RF: 0 bupropion HCl [Wellbutrin SR] 150 mg Tablet Extended Release 12 Hr 150 mg PO BID RF: 0 lisinopril 20 mg Tablet 20 mg PO BID RF: 0 sertraline 100 mg Tablet 100 mg PO DAILY RF: 0 aspirin 81 mg Tablet,Delayed Release (Dr/Ec) 81 mg PO DAILY RF: 0 fenofibrate 54 mg Tablet 54 mg PO DAILY RF: 0 docusate sodium 100 mg Capsule 100 mg PO BID PRN (Reason: Constipation) RF: 0 albuterol sulfate 90 mcg/actuation Hfa Aerosol Inhaler 2 puff INHALATION Q4-6H PRN (Reason: Shortness Of Breath) RF: 0 beclomethasone dipropionate [Qvar] 80 mcg/actuation Aerosol 1 puff INHALATION QAM RF: 0 tiotropium bromide [Spiriva with HandiHaler] 18 mcg Capsule, W/Inhalation Device 1 cap INHALATION DAILY RF: 0 oxycodone 10 mg Tablet 10 mg PO Q3HR PRN (Reason: Pain, Severe) Qty: 60 RF: 0 ferrous gluconate 324 mg (37.5 mg iron) tablet 324 mg PO DAILY Qty: 30 RF: 3 Referrals: Maria Victoria Bustamante MD [Primary Care Provider] - <Guillermina Osman DO - Last Filed: 02/01/19 00:04> [facility]: I was immediately available in the department for consultation. Documentation has been reviewed. I agree with assessment and plan.
--- NOTE | 2019-01-29 12:58 | PC.NURSE ---
pt concern for cancer spreading, sinusitis, jaw root canal. states, had mri and ct done last , now with neck lymph node swelling. denies fever or vomiting. hx of copd.
== END 2019-01-29 13:11 | disposition home or self-care (01) ==
PROVIDERS: Emergency Provider Internal Medicine; PCP Internal Medicine
DX: R59.0 Localized enlarged lymph nodes (principal)
CPT/HCPCS: 99282; 99283

== ENCOUNTER → 2019-02-16 11:16 | Outpatient (CLI) | payer OTHER, SELFPAY ==
[2018-03-06 22:30] VITALS: BMI 19.5
--- NOTE | 2019-02-16 | DI.US.S_ITS ---
PROCEDURE: US CAROTID DOPPLER BI INDICATIONS: STENOSIS OF CAROTID ARTERY TECHNIQUE: Color and pulse Doppler interrogation was performed of both carotid systems, with image documentation and velocity measurements. COMPARISON: None. FINDINGS: Stenosis calculations are based on SRU (Society of Radiologists in Ultrasound) criteria. Right side: Brachial blood pressure: Not obtained. Common carotid artery peak systolic velocity: 71 cm/sec. Internal carotid artery peak systolic velocity: 74 cm/sec. Internal carotid artery end diastolic velocity: 27 cm/sec. External carotid artery peak systolic velocity: 80 cm/sec. ICA/CCA peak systolic ratio: 1.1. Petit scale imaging description: Moderate scattered plaque. Percent internal carotid artery stenosis: Less than 50%. Vertebral artery: Flow direction is antegrade. Left side: Brachial blood pressure: Not obtained. Common carotid artery peak systolic velocity: 70 cm/sec. Internal carotid artery peak systolic velocity: 117 cm/sec. Internal carotid artery end diastolic velocity: 39 cm/sec. External carotid artery peak systolic velocity: 75 cm/sec. ICA/CCA peak systolic ratio: 1.5. Petit scale imaging description: Moderate plaque Percent internal carotid artery stenosis: Less than 50%. Vertebral artery: Flow direction is antegrade. IMPRESSION: Less than 50% bilateral internal carotid artery stenosis. Dictated by: Ricardo Olmedo [facility] Interpreted: Hieu Leonard MD on 02/16/2019 at 14:58 Approved by: Hieu Leonard M.D. on 02/16/2019 at 16:43
== END ==
PROVIDERS: PCP Internal Medicine; Visit Provider Internal Medicine
DX: I65.23 Occlusion and stenosis of bilateral carotid arteries (principal)
CPT/HCPCS: 93880

== ENCOUNTER 2019-02-23 13:13 | Day surgery (SDC) | payer OTHER, SELFPAY ==
[2018-03-06 22:30] VITALS: BMI 19.5
--- NOTE | 2019-02-23 | PATH_ITS ---
[facility] Accession Number: [id number] . 01 Material submitted: . PART A: colon - ASCENDING COLON POLYP PART B: colon - TRANSVERSE COLON POLYP . 01 Clinical history: . A: POLYPS ASCENDING COLON X6 . 02 Diagnosis: A. Ascending Colon, Polyps X6, Biopsies: Tubular adenomas. . B. Transverse Colon, Polyp, Biopsy: Tubular adenoma. BFI/02/25/2019 . 02 Electronically signed: . Camryn Noble MD, Pathologist NPI- [id number] . 01 Gross description: . Part A: ASCENDING COLON POLYP: Received in formalin are multiple fragment(s) of hernandez, soft tissue measuring 1.0 x 1.0 x 0.3 cm in aggregate submitted entirely in 1 cassette(s) Part B: TRANSVERSE COLON POLYP: Received in formalin are 2 fragment(s) of hernandez, soft tissue measuring 0.5 x 0.3 x 0.2 cm to 0.4 x 0.4 x 0.2 cm submitted entirely in 1 cassette(s) /CKI /CKI . 02 Pathologist provided ICD-10: D12.2, D12.3 . 02 CPT . 000055, 875299 Performed at: 01 [facility] [address], [place], [place] [id number] MD Raulito Li MD Phone: [phone] Performed at: 02 [facility] [address] [place], [place] [id number] MD Camryn Noble MD Phone: [phone]
[2019-02-23 14:39] VITALS: BP 163/81; PULSE 66; RESP 15; TEMP 36.3; O2SAT 94; BMI 21.5
--- NOTE | 2019-02-23 14:47 | SUR.PREOP ---
salomón jones rn floor nurse started iv
--- NOTE | 2019-02-23 15:35 | PM.PREOP ---
Pre-operative Note Interval Note History & Physical reviewed/Exam performed by Physician: Yes Changes to H&P: No ASA Class (for procedural sedation): III
--- NOTE | 2019-02-23 16:27 | PM.OP.ENDO ---
Operative Date/Time/Diagnoses Date of procedure: 02/23/19 Procedure & Clinicians Study performed: Colonoscopy with cold snare polypectomy and biopsy Sedation: Monitored anesthesia care. Indications: Personal history of colon polyps. Last colonoscopy was performed 6 years ago. Procedure Notes Procedure in detail: Prior to the procedure, history and physical was performed, and patient medications and allergies were reviewed. Preprocedure nursing history and assessment was reviewed. Patient identification and proposed procedure were verified by the physician and nurse in the procedure room. The physical status of the patient was reassessed after the procedure. After informed consent was obtained including risks, benefits, and alternatives, the scope was passed under direct vision. Throughout the procedure, the patient's blood pressure, pulse, and oxygen saturations were monitored continuously. The colonoscope was introduced through the anus and advanced to the cecum as identified by the appendiceal orifice and ileocecal valve. The patient tolerated the procedure well. Bowel prep was deemed adequate to detect polyps greater than 5 mm. Digital rectal examination was unremarkable. Perianal examination was negative for masses. Retroflexion in the rectum revealed grade 1 internal hemorrhoids. Two 3 mm sessile polyps were noted in the transverse colon and ascending colon. These were removed with a Jumbo biopsy forceps and retrieved. Four 5-8 mm sessile polyps were noted in the ascending colon. These were removed with a cold snare and retrieved. Many medium mouth sigmoid colon diverticuli noted Impression: Internal hemorrhoids Sigmoid colon diverticulosis Seven 3-8 mm polyps in the ascending colon and transverse colon removed Complications: other (EBL minimal. No complications) Plan for aftercare: Follow-up pathology results Repeat colonoscopy at a date to be determined based on pathology results High-fiber diet Resume home medications Discharge home with escort
[2019-02-23 16:31] VITALS: BP 116/71; PULSE 81; RESP 20; TEMP 36.4; O2SAT 99
[2019-02-23 16:34] VITALS: BP 105/63; PULSE 70; RESP 22; O2SAT 97
[2019-02-23 16:41] VITALS: BP 149/74; PULSE 60; RESP 17; O2SAT 97
--- NOTE | 2019-02-23 16:44 | SUR.PHASEI ---
1631 Arrived in PACU awake and talking profusely. Asking appropriate questions. Denies pain/nausea. HOB elevated; juice given.
[2019-02-23 16:45] VITALS: BP 147/75; PULSE 66; RESP 17; O2SAT 97
[2019-02-23 16:56] VITALS: BP 122/70; PULSE 58; RESP 16; TEMP 36.4; O2SAT 95
--- NOTE | 2019-02-23 17:26 | SUR.PHASEII ---
Patient A&O, tolerated procedure and PO intake well. Instructions reviewed and questions answered. Assisted patient with dressing; voided, Stable on feet: RN standby for safety; Stable for discharge.
== END 2019-02-23 17:18 | disposition home or self-care (01) ==
PROVIDERS: PCP Internal Medicine; Visit Provider Internal Medicine
PROC: 0DJD8ZZ Inspection of Lower Intestinal Tract, Via Natural or Artificial Opening Endoscopic (ICD-10-PCS; CPT 45378; principal; 2019-02-23 15:30)
DX: Z86.010 Personal history of colon polyps (principal); K57.30 Diverticulosis of large intestine without perforation or abscess without bleeding; K64.0 First degree hemorrhoids; I10 Essential (primary) hypertension; J44.9 Chronic obstructive pulmonary disease, unspecified; F41.9 Anxiety disorder, unspecified; Z87.2 Personal history of diseases of the skin and subcutaneous tissue; D12.2 Benign neoplasm of ascending colon; D12.3 Benign neoplasm of transverse colon
CPT/HCPCS: 45385; 45380; J2704

== ENCOUNTER → 2019-03-30 09:33 | Outpatient (CLI) | payer OTHER, SELFPAY ==
[2018-03-06 22:30] VITALS: BMI 19.5
--- NOTE | 2019-03-30 | DI.MG.S_ITS ---
BILATERAL DIGITAL SCREENING MAMMOGRAM 3D/2D WITH CAD: 03/30/2019 CLINICAL: Routine screening. Comparison is made to exams dated: 03/03/2017 mammogram, 11/09/2015 mammogram, 10/03/2014 mammogram, 09/05/2013 mammogram, and 04/02/2012 mammogram - [facility]. The tissue of both breasts is heterogeneously dense. This may lower the sensitivity of mammography. Current study was also evaluated with a Computer Aided Detection (CAD) system. No significant masses, calcifications, or other findings are seen in either breast. There has been no significant interval change. IMPRESSION: NEGATIVE There is no mammographic evidence of malignancy. A 1 year screening mammogram is recommended. This exam was interpreted at Station ID: [id number]. NOTE: For mammograms, a report in lay terms will be sent to the patient. Approximately 15% of breast malignancies will not be visualized mammographically. In the management of a palpable breast mass, a negative mammogram must not discourage biopsy of a clinically suspicious lesion. Electronically Signed By: Benigno lindquist/danielle:03/30/2019 11:19:44 copy to: JAMAR AUSTIN letter sent: Normal Exam ACR BI-RADS Category 1: Negative [id number]
[2019-03-30 11:36] LABS: BUN Creatinine Ratio 16.7 (6-22); Blood Urea Nitrogen 10 mg/dL (7-17); Calcium 9.2 mg/dL (8.4-10.2); Carbon Dioxide 27 mmol/L (22-32); Chloride 100 mmol/L (98-107); Cholesterol 201 mg/dL (140-199); Estimated Glomerular Filt Rate > 60.0 mL/min (>60); Glucose 99 mg/dL (80-110); HDL Cholesterol 82 mg/dL (40-60); HEMOLYSIS < 15 (0-50); LDL Cholesterol Calculated 80 mg/dL (<100); Potassium 4.1 mmol/L (3.4-5.1); Sodium 137 mmol/L (137-145); Triglycerides 195 mg/dL (35-150)
== END ==
PROVIDERS: PCP Internal Medicine; Visit Provider Internal Medicine
DX: Z12.31 Encounter for screening mammogram for malignant neoplasm of breast (principal); I10 Essential (primary) hypertension; E78.5 Hyperlipidemia, unspecified
CPT/HCPCS: 36415; 77063; 77067; 80048; 80061

== ENCOUNTER 2019-04-30 12:48 | Emergency (ER) | payer OTHER, SELFPAY ==
[2018-03-06 22:30] VITALS: BMI 19.5
[2019-04-30 13:09] VITALS: BP 181/89; PULSE 82; RESP 18; TEMP 36.3; O2SAT 99; BMI 21.5
--- NOTE | 2019-04-30 13:13 | DI.RAD.S_ITS ---
PROCEDURE: XR SACRUM COCCYX MIN 2V INDICATIONS: glf TECHNIQUE: 3 views of the sacrum and coccyx acquired. COMPARISON: [facility], CR, XR LUMBAR SPINE 2-3V, 04/30/2019, 13:45. [facility], CR, XR HIP W PEL IF DONE LT 2V, 04/30/2019, 13:41. [facility], CT, CT CHEST ABD PEL W CON, 01/27/2019, 10:34. FINDINGS: Bones: No fractures or dislocations. No suspicious bony lesions. Right proximal femur hardware is partially seen. Age-appropriate lower lumbar spine degenerative changes are noted. Soft tissues: Visualized bowel gas pattern is normal. No suspicious soft tissue densities. Atherosclerotic calcification is noted. IMPRESSION: No sacral or coccyx fracture is detected by plain film. Dictated by: Issa Scott M.D. on 04/30/2019 at 13:07 Approved by: Issa Scott M.D. on 04/30/2019 at 13:07
--- NOTE | 2019-04-30 13:13 | DI.RAD.S_ITS ---
PROCEDURE: XR LUMBAR SPINE 2-3V INDICATIONS: glf TECHNIQUE: 3 views of the lumbar spine were acquired. COMPARISON: [facility], CT, CT CHEST ABD PEL W CON, 01/27/2019, 10:34. [facility], CR, XR SACRUM COCCYX MIN 2V, 04/30/2019, 13:48. [facility], CR, XR HIP W PEL IF DONE LT 2V, 04/30/2019, 13:41. FINDINGS: Bones: Mild dextroconvex scoliotic curvature is seen. 5 nonrib-bearing, lumbar type vertebral bodies are seen. No focal AP alignment abnormality is seen. There is moderate to severe disc space narrowing at the L1-L2 level. Moderate disc space narrowing is seen at L2-L3. Minimal retrolisthesis is seen at L2. The disc heights otherwise appear well-preserved. Endplate irregularity and sclerosis are seen, which are most prominent at L1-L2. Age-appropriate lower thoracic spine degenerative changes are seen. Lower lumbar spine facet arthropathy is seen. Proximal femur hardware has personally is in. Soft tissues: Overlying bowel gas pattern is normal. No suspicious soft tissue calcifications. Atherosclerotic calcification is noted. IMPRESSION: No acute fracture is seen by plain film. Focal L1-L2 degenerative change. Dextroconvex scoliotic curvature. Dictated by: Issa Scott M.D. on 04/30/2019 at 13:04 Approved by: Issa Scott M.D. on 04/30/2019 at 13:06
--- NOTE | 2019-04-30 13:14 | DI.RAD.S_ITS ---
PROCEDURE: XR HIP W PEL IF DONE LT 2V INDICATIONS: glf TECHNIQUE: AP pelvis with lateral view(s) of the left hip(s). COMPARISON: [facility], CR, XR SACRUM COCCYX MIN 2V, 04/30/2019, 13:48. [facility], CR, XR LUMBAR SPINE 2-3V, 04/30/2019, 13:45. [facility], MR, MR PELVIS WO CON, 01/27/2019, 9:22. [facility], CR, XR HIP W PEL IF DONE RT 2V, 03/07/2018, 9:05. [facility], CR, XR HIP W PEL IF DONE RT 2V, 03/06/2018, 17:28. FINDINGS: Bones: No fractures or dislocations. Pelvic ring appears intact. No suspicious bony lesions. Unremarkable right proximal femur hardware is seen. There is at least moderate superior joint space narrowing seen of both hips, with associated remodeling changes with subchondral sclerosis and osteophyte formation. Age-appropriate lower lumbar spine degenerative changes are noted. Soft tissues: The visualized bowel gas pattern is normal. No suspicious soft tissue calcifications. Pelvic phleboliths are incidentally noted. IMPRESSION: A displaced fracture is not seen on this study. Dictated by: Issa Scott M.D. on 04/30/2019 at 13:02 Approved by: Issa Scott M.D. on 04/30/2019 at 13:03
--- NOTE | 2019-04-30 13:32 | ED_ITS ---
HPI - Back Pain/Injury <SHARYN Robertson - Last Filed: 04/30/19 16:11> General Chief Complaint: Back Pain/Injury Stated Complaint: Fell 2 wks ago, hurt back Time Seen by Provider: 04/30/19 12:56 Source: patient and family Mode of arrival: ambulatory Limitations: no limitations History of Present Illness HPI Narrative: The patient is a 78-year-old female current smoker presents with daughter for lower back pain. She states that her lower back pain started 2 weeks ago after a ground level fall. She states she tripped and fell over her dog, landing on her left hip and her lower back on the floor. She states she was not evaluated after this fall. She states she has used Tylenol for the pain, but has not gotten any better. She denies any numbness, incontinence of bowel, incontinence of bladder. She states that she has bruising on her left hip, and she had a right hip fracture last year. Related Data Home Medications Medication Instructions Recorded Confirmed albuterol sulfate 2 puff INHALATION Q4-6H PRN 03/06/18 02/23/19 aspirin 81 mg PO DAILY 03/06/18 02/23/19 carvedilol 6.25 mg PO BID 03/06/18 02/23/19 lisinopril 10 mg PO DAILY 03/06/18 02/23/19 Qvar 1 puff INHALATION QAM 03/07/18 02/23/19 Spiriva with HandiHaler 1 cap INHALATION DAILY 03/07/18 02/23/19 Previous Rx's Medication Instructions Recorded ferrous gluconate 324 mg PO DAILY #30 tab 03/10/18 hydrocodone-acetaminophen 1 tab PO Q4-6H PRN #7 tab 04/30/19 methocarbamol [Robaxin] 500 mg PO TID PRN #20 tab 04/30/19 ondansetron 4 mg PO Q6H PRN #20 tab 04/30/19 Allergies Allergy/AdvReac Type Severity Reaction Status Date / Time Sulfa (Sulfonamide Allergy Intermediate RASH Verified 04/30/19 13:15 Antibiotics) [SULFA (SULFONAMIDE ANTIBIOTICS)] Review of Systems <SHARYN Robertson - Last Filed: 04/30/19 16:11> Review of Systems GENERAL: Denies chills, fatigue, malaise, fever, sweats. HEENT: Denies sinus pain, ear pain, sore throat, difficulty swallowing, dizziness. RESPIRATORY: Denies dyspnea, cough, wheezing, hemoptysis, sputum. CARDIOVASCULAR: Denies chest pain, palpitations, orthopnea, edema, GASTROINTESTINAL: Denies nausea, vomiting, abdominal pain, diarrhea, constipation, melena. : Denies dysuria, frequency, incontinence, hematuria, urinary retention. MUSCULOSKELETAL: See HPI SKIN: See HPI NEUROLOGIC: Denies weakness, headache, numbness, change in speech, confusion, seizures, incoordination. PSYCHIATRIC: No concerning psychosocial issues. 12 point review of systems is negative except for those stated above PFSH <SHARYN Robertson - Last Filed: 04/30/19 16:11> Medical History Osteoporosis (Chronic) Nicotine dependence (Chronic) ETOH abuse (Chronic) Depression (Chronic) COPD (chronic obstructive pulmonary disease) (Chronic) Hypertension (Chronic) Closed hip fracture (Resolved) Extra mammary Paget disease (Chronic) Surgical History Status post hysterectomy (Resolved) Social History household members: friend(s) and none Smoking Status: Current every day smoker Social History household members: friend(s) and none Smoking Status: Current every day smoker Exam <SHARYN Robertson - Last Filed: 04/30/19 16:11> Narrative Exam Narrative: GENERAL: Thin elderly female sitting on stretcher HEAD: Atraumatic. Normocephalic. No temporal or scalp tenderness. EYES: Pupils equal round and reactive. Extraocular motions intact. No scleral icterus. No injection or drainage. ENT: Nose without bleeding, purulent drainage or septal hematoma. Throat without erythema, tonsillar hypertrophy or exudate. Uvula midline. Airway patent. NECK: Trachea midline. No JVD or lymphadenopathy. Supple, nontender, no meningeal signs. CARDIOVASCULAR: Regular rate and rhythm without murmurs, gallops, or rubs. RESPIRATORY: Clear to auscultation. Breath sounds equal bilaterally. No wheezes, rales, or rhonchi. No cough. No increased respiratory effort. No accessory muscle use. GASTROINTESTINAL: Abdomen soft, non-tender, nondistended. No hepato- splenomegaly, or palpable masses. No guarding. EXTREMITIES: No clubbing, cyanosis, or edema. No joint tenderness, effusion, or edema noted. Positive pedal pulses bilaterally. BACK: No pain to C, T or L-spine palpation. Pain to bilateral paraspinal muscle palpation of L-spine, no palpable step-offs or deformities. Pain to palpation of sacrum and coccyx. No flank tenderness. NEURO: AOx3. Strength is equal upper and lower extremities bilaterally. Steady gait. SKIN: No rash or erythema. No rash erythema or ecchymosis noted on back. 6 x 8 cm of ecchymosis noted on left hip. Initial Vital Signs Initial Vital Signs: Vital Signs Temperature 97.3 F L 04/30/19 13:09 Pulse Rate 82 04/30/19 13:09 Respiratory Rate 18 04/30/19 13:09 Blood Pressure 181/89 H 04/30/19 13:09 Pulse Oximetry 99 04/30/19 13:09 <Guillermina Osman DO - Last Filed: 05/08/19 20:26> Initial Vital Signs Initial Vital Signs: Vital Signs Temperature 97.3 F L 04/30/19 13:09 Pulse Rate 82 04/30/19 13:09 Respiratory Rate 18 04/30/19 13:09 Blood Pressure 181/89 H 04/30/19 13:09 Pulse Oximetry 99 04/30/19 13:09 Course <SHARYN Robertson - Last Filed: 04/30/19 16:11> Orders Ordered: Discontinued Medications Hydrocodone Bitart/Acetaminophen ([place] 5/325) 1 tab PO NOW ONE Stop: 04/30/19 14:28 Last Admin: 04/30/19 14:58 Dose: 1 tab Lidocaine (Lidoderm) 1 each TOP NOW ONE Stop: 04/30/19 13:14 Last Admin: 04/30/19 13:38 Dose: 1 each Methocarbamol (Robaxin) 500 mg PO NOW ONE Stop: 04/30/19 13:16 Last Admin: 04/30/19 13:38 Dose: 500 mg Ondansetron HCl (Zofran Odt) 4 mg SL NOW ONE Stop: 04/30/19 14:28 Last Admin: 04/30/19 14:58 Dose: 4 mg Vital Signs - 8 hr 04/30/19 13:09 04/30/19 15:21 Temperature 97.3 F L Pulse Rate 82 70 Respiratory Rate 18 14 Blood Pressure 181/89 H Blood Pressure [Left Arm] 119/85 Pulse Oximetry 99 94 <Guillermina Osman DO - Last Filed: 05/08/19 20:26> Orders Ordered: Discontinued Medications Hydrocodone Bitart/Acetaminophen ([place] 5/325) 1 tab PO NOW ONE Stop: 04/30/19 14:28 Last Admin: 04/30/19 14:58 Dose: 1 tab Lidocaine (Lidoderm) 1 each TOP NOW ONE Stop: 04/30/19 13:14 Last Admin: 04/30/19 13:38 Dose: 1 each Methocarbamol (Robaxin) 500 mg PO NOW ONE Stop: 04/30/19 13:16 Last Admin: 04/30/19 13:38 Dose: 500 mg Ondansetron HCl (Zofran Odt) 4 mg SL NOW ONE Stop: 04/30/19 14:28 Last Admin: 04/30/19 14:58 Dose: 4 mg Vital Signs - 8 hr 04/30/19 13:09 04/30/19 15:21 Temperature 97.3 F L Pulse Rate 82 70 Respiratory Rate 18 14 Blood Pressure 181/89 H Blood Pressure [Left Arm] 119/85 Pulse Oximetry 99 94 MDM - Back Pain/Injury <SHARYN Robertson - Last Filed: 04/30/19 16:11> Imaging Data hip xray : Radiologist's impression: [address] [address] XRay Report Signed Patient: Dalila Mason [facility]#: [id number] : 1Acct:[id number] Age/Sex: 78 / FDate of Service: 04/30/19 Loc: ED Accession Number: [id number] Procedure: XR hip w pel if done LT 2V Ordering Provider: Taina Severino PROCEDURE: XR HIP W PEL IF DONE LT 2V INDICATIONS: glf TECHNIQUE: AP pelvis with lateral view(s) of the left hip(s). COMPARISON: [facility], CR, XR SACRUM COCCYX MIN 2V, 04/30/2019, 13:48. [facility], CR, XR LUMBAR SPINE 2-3V, 04/30/2019, 13:45. [facility], MR, MR PELVIS WO CON, 01/27/2019, 9:22. [facility], CR, XR HIP W PEL IF DONE RT 2V, 03/07/2018, 9:05. [facility], CR, XR HIP W PEL IF DONE RT 2V, 03/06/2018, 17:28. FINDINGS: Bones: No fractures or dislocations. Pelvic ring appears intact. No suspicious bony lesions. Unremarkable right proximal femur hardware is seen. There is at least moderate superior joint space narrowing seen of both hips, with associated remodeling changes with subchondral sclerosis and osteophyte formation. Age-appropriate lower lumbar spine degenerative changes are noted. Soft tissues: The visualized bowel gas pattern is normal. No suspicious soft tissue calcifications. Pelvic phleboliths are incidentally noted. IMPRESSION: A displaced fracture is not seen on this study. Dictated by: Issa Scott M.D. on 04/30/2019 at 13:02 Approved by: Issa Scott M.D. on 04/30/2019 at 13:03 lumbar xray : Radiologist's impression: [place] [address] XRay Report Signed Patient: Dalila Mason [facility]#: [id number] : 1Acct:[id number] Age/Sex: 78 / FDate of Service: 04/30/19 Loc: ED Accession Number: [id number] Procedure: XR lumbar spine 2-3V Ordering Provider: Taina Severino- PROCEDURE: XR LUMBAR SPINE 2-3V INDICATIONS: glf TECHNIQUE: 3 views of the lumbar spine were acquired. COMPARISON: [facility], CT, CT CHEST ABD PEL W CON, 01/27/2019, 10:34. [facility], CR, XR SACRUM COCCYX MIN 2V, 04/30/2019, 13:48. [facility], CR, XR HIP W PEL IF DONE LT 2V, 04/30/2019, 13:41. FINDINGS: Bones: Mild dextroconvex scoliotic curvature is seen. 5 nonrib-bearing, lumbar type vertebral bodies are seen. No focal AP alignment abnormality is seen. There is moderate to severe disc space narrowing at the L1-L2 level. Moderate disc space narrowing is seen at L2-L3. Minimal retrolisthesis is seen at L2. The disc heights otherwise appear well-preserved. Endplate irregularity and sclerosis are seen, which are most prominent at L1-L2. Age-appropriate lower thoracic spine degenerative changes are seen. Lower lumbar spine facet arthropathy is seen. Proximal femur hardware has personally is in. Soft tissues: Overlying bowel gas pattern is normal. No suspicious soft tissue calcifications. Atherosclerotic calcification is noted. IMPRESSION: No acute fracture is seen by plain film. Focal L1-L2 degenerative change. Dextroconvex scoliotic curvature. Dictated by: Issa Scott M.D. on 04/30/2019 at 13:04 Approved by: Issa Scott M.D. on 04/30/2019 at 13:06 sacral xray : Radiologist's impression: [address] [address] XRay Report Signed Patient: Dalila Mason [facility]#: [id number] : 1Acct:[id number] Age/Sex: 78 / FDate of Service: 04/30/19 Loc: ED Accession Number: [id number] Procedure: XR sacrum coccyx min 2V Ordering Provider: Taina Severino- PROCEDURE: XR SACRUM COCCYX MIN 2V INDICATIONS: glf TECHNIQUE: 3 views of the sacrum and coccyx acquired. COMPARISON: [facility], CR, XR LUMBAR SPINE 2-3V, 04/30/2019, 13:45. [facility], CR, XR HIP W PEL IF DONE LT 2V, 04/30/2019, 13:41. [facility], CT, CT CHEST ABD PEL W CON, 01/27/2019, 10:34. FINDINGS: Bones: No fractures or dislocations. No suspicious bony lesions. Right proximal femur hardware is partially seen. Age-appropriate lower lumbar spine degenerative changes are noted. Soft tissues: Visualized bowel gas pattern is normal. No suspicious soft tissue densities. Atherosclerotic calcification is noted. IMPRESSION: No sacral or coccyx fracture is detected by plain film. Dictated by: Issa Scott M.D. on 04/30/2019 at 13:07 Approved by: Issa Scott M.D. on 04/30/2019 at 13:07 [facility] Narrative Medical decision making narrative: The patient is a 78-year-old female who presents with a chief complaint of lower back pain for the past 2 weeks after a fall. She has negative x-rays for acute etiology. I discussed that she does have degenerative changes noted in her L-spine and discussed the options for degenerative changes include arthritis or disc issues. She does not have any red flag symptoms of numbness, incontinence of bowel or incontinence of bladder. Encouraged patient to follow up with primary care physician. She may benefit from further care and or physical therapy. The patient received Robaxin, lidocaine patch and a single dose of [place] in the emergency department for pain. I did discuss in her discharge instructions that she cannot combine [place] or muscle relaxers with alcohol. The patient brought up OxyContin as a pain medication option for her, which I declined to do in the emergency department. I discussed that we do not prescribe pain medications like OxyContin in the ER. I encouraged her to follow up with her PCP, and she repeatedly stated she did not want to. The patient was able to ambulate throughout her stay in the emergency department and passed an ambulation trial prior to discharge. Discussed follow-up with PCP as well as return precautions here. Patient daughter stated understanding. No questions or concerns upon discharge Discharge Plan Departure Patient Disposition: Home Clinical Impression: Fall from ground level Lower back pain Qualifiers: Chronicity: acute Back pain laterality: bilateral Sciatica presence: without sciatica Qualified Code(s): M54.5 - Low back pain Contusion Qualifiers: Encounter type: initial encounter Contusion area: hip Laterality: left Qualified Code(s): S70.02XA - Contusion of left hip, initial encounter Discharge Date/Time: 04/30/19 15:28 Interventions: ED Discharge Assessment Last Done: 04/30/19 15:27 Instructions: DI for Low Back Pain, DI for Contusion, How to Prevent Falls Activity Restrictions/Additional Instructions: Your x-rays today show no acute fracture or acute injury from your fall 2 weeks ago Your lumbar x-rays show degenerative changes. Possibilities can include but are not limited to arthritis, disc problems etc Please follow up with primary care provider. I have given you prescriptions for nausea and pain. Be aware that the pain medications can be sedating and constipating do not combine them with any other sedating agents such as other sedating medications or alcohol Please come back to the emergency department for any acute concerns such as groin numbness, incontinence of bowel or incontinence of bladder. Prescriptions: New methocarbamol [Robaxin] 500 mg tablet 500 mg PO TID PRN (Reason: muscle spasm) Qty: 20 RF: 0 hydrocodone-acetaminophen 5-325 mg tablet 1 tab PO Q4-6H PRN (Reason: pain) Qty: 7 RF: 0 ondansetron 4 mg tablet,disintegrating 4 mg PO Q6H PRN (Reason: nausea and vomiting) Qty: 20 RF: 0 No Action carvedilol 6.25 mg Tablet 6.25 mg PO BID RF: 0 lisinopril 20 mg Tablet 10 mg PO DAILY RF: 0 aspirin 81 mg Tablet,Delayed Release (Dr/Ec) 81 mg PO DAILY RF: 0 albuterol sulfate 90 mcg/actuation Hfa Aerosol Inhaler 2 puff INHALATION Q4-6H PRN (Reason: Shortness Of Breath) RF: 0 Qvar 80 mcg/actuation Aerosol 1 puff INHALATION QAM RF: 0 Spiriva with HandiHaler 18 mcg Capsule, W/Inhalation Device 1 cap INHALATION DAILY RF: 0 ferrous gluconate 324 mg (37.5 mg iron) tablet 324 mg PO DAILY Qty: 30 RF: 3 Referrals: Maria Victoria Bustamante MD [Primary Care Provider] - <Guillermina Osman DO - Last Filed: 05/08/19 20:26> Cosign ED Attending Ryan Attestation: I was immediately available in the department for consultation. Documentation has been reviewed. I agree with assessment and plan.
[2019-04-30] MEDS: METHOCARBAMOL 500 MG TABLET PO (13:38)
[2019-04-30] MEDS: LIDOCAINE PATCH 1 EACH ADH..PATCH TOP (13:38)
[2019-04-30] MEDS: ONDANSETRON 4 MG ODT SL (14:58)
[2019-04-30] MEDS: HYDROCODONE/ACET 5/325 TABLET 1 TAB PO (14:58)
[2019-04-30 15:21] VITALS: BP 119/85; PULSE 70; RESP 14; O2SAT 94
== END 2019-04-30 15:28 | disposition home or self-care (01) ==
PROVIDERS: Emergency Provider Nurse Practitioner Family; PCP Internal Medicine
DX: M54.5 Low back pain (principal); S70.02XA Contusion of left hip, initial encounter; W01.0XXA Fall on same level from slipping, tripping and stumbling without subsequent striking against object, initial encounter
CPT/HCPCS: 72100; 72220; 73502; 99282; 99283

== ENCOUNTER → 2019-07-20 10:28 | Outpatient (CLI) | payer OTHER, SELFPAY ==
[2018-03-06 22:30] VITALS: BMI 19.5
[2019-07-20 12:00] LABS: Alanine Aminotransferase 22 IU/L (9-52); Aspartate Aminotransferase 31 IU/L (14-36); Cholesterol 173 mg/dL (140-199); HDL Cholesterol 91 mg/dL (40-60); LDL Cholesterol Calculated 58 mg/dL (<100); Triglycerides 118 mg/dL (35-150)
== END ==
PROVIDERS: PCP Internal Medicine; Visit Provider Internal Medicine
DX: E78.5 Hyperlipidemia, unspecified (principal)
CPT/HCPCS: 36415; 80061; 84450; 84460

== ENCOUNTER → 2019-09-05 10:51 | Outpatient (CLI) | payer OTHER, SELFPAY ==
[2018-03-06 22:30] VITALS: BMI 19.5
[2019-09-05 12:21] LABS: Add Manual Diff / Slide Review NO; Basophils Absolute Auto 100 /uL (0-100); Basophils Percent Auto 2.4 % (0-2); Eosinophils Absolute Auto 100 /uL (0-450); Eosinophils Percent Auto 1.8 % (2-4); Hematocrit 38.3 % (36-46); Hemoglobin 13.2 g/dL (12.0-16.0); Lymphocytes Absolute Auto 1000 /uL (1100-4500); Lymphocytes Percent Auto 17.6 % (25-40); Mean Corpuscular HGB Conc 34.5 % (30-36); Mean Corpuscular Volume 92.8 fL (80-100); Monocytes Absolute Auto 500 /uL (0-900); Monocytes Percent Auto 8.6 % (3-14); Neutrophils Absolute Auto 4000 /uL (1500-7000); Neutrophils Percent Auto 69.6 % (50-75); Platelet Count 248 X10^3/uL (150-400); Red Blood Cell Count 4.13 X10^6/uL (4.0-5.2); Red Cell Distribution Width 14.1 % (11.6-14.8); White Blood Cell Count 5.7 X10^3/uL (4.5-11.0)
[2019-09-05 12:50] LABS: Alanine Aminotransferase 18 IU/L (<35); Albumin 4.4 g/dL (3.5-5.0); Albumin Globulin Ratio 1.5 (1.0-2.8); Alkaline Phosphatase 95 U/L (38-126); Aspartate Aminotransferase 32 IU/L (14-36); Bilirubin Total 0.6 mg/dL (0.2-1.3); Blood Urea Nitrogen 12 mg/dL (7-17); Calcium 9.1 mg/dL (8.4-10.2); Carbon Dioxide 28 mmol/L (22-32); Chloride 99 mmol/L (98-107); Estimated Glomerular Filt Rate > 60.0 mL/min (>60); Glucose 101 mg/dL (80-110); HEMOLYSIS 16 (0-50); Potassium 3.9 mmol/L (3.4-5.1); Sodium 135 mmol/L (137-145); Total Protein 7.4 g/dL (6.3-8.2)
== END ==
PROVIDERS: Family Provider Internal Medicine; PCP Internal Medicine; Visit Provider Internal Medicine Hematology & Oncology
DX: C21.0 Malignant neoplasm of anus, unspecified (principal)
CPT/HCPCS: 36415; 80053; 85025

== ENCOUNTER → 2019-09-06 07:13 | Outpatient (CLI) | payer OTHER, SELFPAY ==
[2018-03-06 22:30] VITALS: BMI 19.5
--- NOTE | 2019-09-06 08:42 | DI.CT.S_ITS ---
PROCEDURE: CT CHEST ABD PEL W CON INDICATIONS: Malignant neoplasm of anus, unspecified TECHNIQUE: After the administration of oral and intravenous contrast, 5 mm thick sections acquired from the lung apices to the symphysis. 5 mm coronal and sagittal reformats were performed, with additional 7 mm coronal MIP reformats through the lungs. For radiation dose reduction, the following was used: automated exposure control, adjustment of mA and/or kV according to patient size. COMPARISON: [facility], CT, CT CHEST ABD PEL W CON, 01/27/2019, 10:34. FINDINGS: Image quality: Artifact is present within the right lower pelvis secondary to metallic streak artifact from right femoral fixation. CHEST: Lungs and pleura: No acute airspace opacities. No pleural effusions or pneumothorax. Central and peripheral airways appear patent and normal in caliber. There is appearance of mild patchy interstitial prominence within the right base, new compared to prior exam. Linear strandy opacity within the right middle lobe is unchanged. Mediastinum: Heart size is normal. No pericardial effusion. No mediastinal or hilar adenopathy by size criteria. Thoracic aorta and central pulmonary arteries are normal in size. Esophagus is normal in caliber. No hiatal hernia. Chest wall: No axillary or supraclavicular adenopathy by size criteria. Thyroid gland demonstrates stable low attenuation focus with calcification in the right lobe. ABDOMEN: Solid organs: Liver is enlarged. Gallbladder is unremarkable. Biliary system is non dilated. Pancreas enhances normally. Spleen is normal in size and enhancement. No adrenal nodules. Kidneys demonstrate normal size and enhancement, without hydronephrosis. Peritoneum and bowel: Bowel loops demonstrate normal wall thickness and caliber. No free fluid or air. Nodes and vessels: No retroperitoneal or mesenteric adenopathy by size criteria. Aorta and inferior vena cava are normal in size. Miscellaneous: No ventral hernias. PELVIS: Genitourinary: Bladder wall thickness is normal. Miscellaneous: No inguinal hernias or adenopathy. Bones: No suspicious bony lesions. No vertebral body compression fractures. IMPRESSION: 1. Patchy interstitial prominence within the right base. This could represent dependent atelectatic change or developing airspace disease. Recommend short interval imaging followup to document resolution. 2. Otherwise stable interval exam without evidence of recurrent or residual disease. Dictated by: Cheyenne Garcia M.D. on 09/06/2019 at 17:56 Approved by: Cheyenne Garcia M.D. on 09/06/2019 at 18:01
== END ==
PROVIDERS: Family Provider Internal Medicine; PCP Internal Medicine; Visit Provider Internal Medicine Hematology & Oncology
DX: C21.0 Malignant neoplasm of anus, unspecified (principal)
CPT/HCPCS: 71260; 74177; Q9967

== ENCOUNTER 2019-11-14 00:09 | Emergency (ER) | payer MEDICARE, SELFPAY ==
[2018-03-06 22:30] VITALS: BMI 19.5
[2019-11-14] VITALS (16 sets, daily range): BP systolic 137–200; BP diastolic 58–103; PULSE 90–109; RESP 18–36; O2SAT 88–99
--- NOTE | 2019-11-14 00:12 | DI.RAD.S_ITS ---
PROCEDURE: XR ANKLE LT MIN 3V INDICATIONS: injury TECHNIQUE: 3 views of the ankle were acquired. COMPARISON: None. FINDINGS: Bones: There is a spiral fracture in the distal tibial shaft just above the tibial metaphysis with mild angulation and displacement. A transverse fracture is seen in the distal fibular shaft. There are old healed fractures with internal fixation involving the medial and lateral malleoli. Ankle mortise is normally aligned. No suspicious bony lesions. There is osteopenia. Calcaneal spurring. Soft tissues: No tibiotalar joint effusion. Achilles tendon appears normal. Soft tissue swelling. IMPRESSION: 1. Spiral fracture with mild angulation and displacement in the distal tibia. 2. Transverse fracture of the distal fibula. 3. Old fractures with internal fixation involving the medial and lateral malleoli. Dictated by: Santiago Martinez M.D. on 11/14/2019 at 8:57 Approved by: Santiago Martinez M.D. on 11/14/2019 at 9:00
--- NOTE | 2019-11-14 00:12 | DI.RAD.S_ITS ---
PROCEDURE: XR TIBIA FIBULA RT 2V INDICATIONS: trauma, injury with obvious deformity TECHNIQUE: 2 views of the tibia and fibula were acquired. COMPARISON: [facility], CR, ANKLE 3 VIEWS RIGHT, 06/10/2014, 15:27. CR, KNEE SERIES LT, 06/03/2016, 14:49. [facility], CR, XR ANKLE LT MIN 3V, 11/14/2019, 0:16. FINDINGS: Bones: There are old fracture with internal fixations of distal tibia and fibula. Above surgical fixations, there is acute spiral fracture with mild displacement and angulation of the distal tibia and acute oblique fracture of the distal fibula with mild displacement. No suspicious bony lesions. Soft tissues: No suspicious soft tissue calcifications or masses. IMPRESSION: 1. Spiral fracture of the distal tibia was mild displacement and angulation. 2. Mildly displaced distal fibular shaft fracture. 3. Old ankle injuries with internal fixation. Dictated by: Santiago Martinez M.D. on 11/14/2019 at 8:52 Approved by: Santiago Martinez M.D. on 11/14/2019 at 8:57
[2019-11-14 00:22] LABS: Add Manual Diff / Slide Review NO; Basophils Absolute Auto 100 /uL (0-100); Basophils Percent Auto 0.9 % (0-2); Eosinophils Absolute Auto 100 /uL (0-450); Eosinophils Percent Auto 1.5 % (2-4); Hematocrit 41.6 % (36-46); Hemoglobin 14.1 g/dL (12.0-16.0); Lymphocytes Absolute Auto 1400 /uL (1100-4500); Lymphocytes Percent Auto 17.3 % (25-40); Mean Corpuscular HGB Conc 33.8 % (30-36); Mean Corpuscular Hemoglobin 31.5 PG (26-34); Mean Corpuscular Volume 93.1 fL (80-100); Monocytes Absolute Auto 700 /uL (0-900); Monocytes Percent Auto 8.2 % (3-14); Neutrophils Absolute Auto 5800 /uL (1500-7000); Neutrophils Percent Auto 72.1 % (50-75); Platelet Count 259 X10^3/uL (150-400); Red Blood Cell Count 4.47 X10^6/uL (4.0-5.2); Red Cell Distribution Width 15.1 % (11.6-14.8)
[2019-11-14 00:25] LABS: INR 0.9 (0.9-1.3); Prothrombin Time 10.4 SECONDS (10.1-12.7)
[2019-11-14] MEDS: fentaNYL 100 MCG/2 ML INJ 50 MCG IV (00:28)
[2019-11-14 00:30] LABS: Blood Urea Nitrogen 10 mg/dL (7-17); Calcium 9.2 mg/dL (8.4-10.2); Carbon Dioxide 27 mmol/L (22-32); Chloride 95 mmol/L (98-107); Estimated Glomerular Filt Rate > 60.0 mL/min (>60); Ethanol (ETOH) 200 mg/dL; Glucose 133 mg/dL (80-110); HEMOLYSIS 44 (0-50); Potassium 4.3 mmol/L (3.4-5.1); Sodium 136 mmol/L (137-145)
--- NOTE | 2019-11-14 00:34 | ED.LOWEXIN ---
HPI - Extremity Injury (Lower) General Chief Complaint: Extremity Injury, Lower Stated Complaint: Left ankle injury Time Seen by Provider: 11/14/19 00:10 Source: patient and EMS Mode of arrival: EMS Limitations: no limitations History of Present Illness HPI Narrative: 79-year-old female daily smoker and drinker with history of hypertension presents by EMS with a chief complaint of an obvious left ankle fracture. She was out smoking after having approximately 3 glasses of wine when she tripped and fell and injured her left lower leg. She denies any knee or hip pain. She states she did not hit her head and denies any neck or back pain. She denies any numbness, tingling or weakness. Her pain is significantly worse with any range of motion. MD complaint: ankle injury Related Data Home Medications Medication Instructions Recorded Confirmed albuterol sulfate 2 puff INHALATION Q4-6H PRN 03/06/18 02/23/19 aspirin 81 mg PO DAILY 03/06/18 02/23/19 carvedilol 6.25 mg PO BID 03/06/18 02/23/19 lisinopril 10 mg PO DAILY 03/06/18 02/23/19 Qvar 1 puff INHALATION QAM 03/07/18 02/23/19 Spiriva with HandiHaler 1 cap INHALATION DAILY 03/07/18 02/23/19 Previous Rx's Medication Instructions Recorded ferrous gluconate 324 mg PO DAILY #30 tab 03/10/18 hydrocodone-acetaminophen 1 tab PO Q4-6H PRN #7 tab 04/30/19 methocarbamol [Robaxin] 500 mg PO TID PRN #20 tab 04/30/19 ondansetron 4 mg PO Q6H PRN #20 tab 04/30/19 Allergies Allergy/AdvReac Type Severity Reaction Status Date / Time Sulfa (Sulfonamide Allergy Intermediate RASH Verified 04/30/19 13:15 Antibiotics) [SULFA (SULFONAMIDE ANTIBIOTICS)] Review of Systems Constitutional Constitutional: Denies chills, Denies fatigue, Denies fever(s), Denies frequent falls, Denies lethargy and Denies weakness Eyes Eyes: Denies change in vision, Denies eye discharge, Denies irritation and Denies loss of vision ENT Ears, Nose, Mouth, and Throat: Denies change in voice, Denies dizziness, Denies neck pain, Denies sore throat and Denies throat swelling Cardiovascular Cardiovascular: Denies chest pain, Denies irregular heart rhythm, Denies lightheadedness, Denies palpitations, Denies dyspnea, Denies dyspnea on exertion and Denies orthopnea Respiratory Respiratory: Denies cough, Denies dyspnea, Denies dyspnea on exertion and Denies wheezing Gastrointestinal Gastrointestinal: Denies abdominal pain, Denies change in bowel habits, Denies diarrhea, Denies nausea and Denies vomiting Genitourinary Genitourinary: Denies hematuria, Denies flank pain, Denies urinary incontinence and Denies urinary urgency Musculoskeletal Musculoskeletal: Denies back pain, Reports joint swelling, Reports limited range of motion, Denies muscle weakness, Denies neck pain, Denies numbness and Denies tingling Integumentary/Breasts Skin/Breast: Denies pruritus, Denies erythema, Denies rash and Denies wounds Neurologic Neurologic: Denies behavioral changes, Denies confusion, Denies dizziness, Denies frequent falls, Denies loss of vision, Denies numbness, Denies tingling and Denies weakness Psychiatric Psychiatric: Denies anxiety, Denies behavioral changes, Denies confusion, Denies depression, Denies homicidal ideation and Denies suicidal ideation Endocrine Endocrine: Denies fatigue, Denies flushing and Denies palpitations Hematologic/Lymphatic Hematologic/Lymphatic: Denies easy bruising Allergic/Immunologic Allergic/Immunologic: Denies urticaria, Denies throat swelling and Denies wheezing Patient History Medical History Closed hip fracture (Resolved) COPD (chronic obstructive pulmonary disease) (Chronic) Depression (Chronic) ETOH abuse (Chronic) Extra mammary Paget disease (Chronic) Hypertension (Chronic) Nicotine dependence (Chronic) Osteoporosis (Chronic) Surgical History Status post hysterectomy (Resolved) Social History household members: friend(s) and none Smoking Status: Current every day smoker Smoking Status: Current every day smoker alcohol intake frequency: 0-2 drinks per day Alcohol type: beer and wine Substance Use Type: does not use Exam Narrative Exam Narrative: GENERAL: [71] year old patient appears stated age. Well-nourished, well-developed patient, in moderate distress. Clutching her left lower leg, complaining of significant pain. GCS 15 HEAD: Atraumatic. Normocephalic. EYES: Pupils equal round and reactive. Extraocular motions intact. No scleral icterus. No injection or drainage. ENT: Nose without bleeding, purulent drainage. Throat without erythema, tonsillar hypertrophy or exudate. Airway patent. NECK: Trachea midline. Non tender CARDIOVASCULAR: Regular rate and rhythm without murmurs, gallops, or rubs. RESPIRATORY: Clear to auscultation. Breath sounds equal bilaterally. No wheezes, rales, or rhonchi. GASTROINTESTINAL: Abdomen soft, non-tender, nondistended. EXTREMITIES: Isolated Left lower extremity with obvious deformity to distal with sensation and pulses intact distal to the injury. Cap refill less than 2 seconds. No pain or sweilling to knee. BACK: Nontender without deformity or crepitance. No flank tenderness. NEURO: AOx3. SKIN: No rash or erythema of visible areas Initial Vital Signs Initial Vital Signs: Vital Signs Pulse Rate 92 H 11/14/19 00:10 Respiratory Rate 20 11/14/19 00:10 Blood Pressure 197/96 H 11/14/19 00:10 Pulse Oximetry 96 11/14/19 00:10 Procedures Orthopedic Splinting/Casting Injury #1: Side: left Lower Extremity Injury Location: lower leg Lower Extremity Immobilizer: posterior splint and stirrup splint Post splinting neuro exam: intact Post splinting vascular exam: intact Placed by: Nursing Procedural Sedation Patient Age: Patient is 5yrs or older Consent signed: No Time out performed: Yes Indication: fracture/dislocation reduction Presedation Evaluation: implied consent in patient with narcotics and etoh on board ASA Class: II Mallampati Airway Classification: Class I Preparation: secured entrance monitor applied, pulse oximeter, capnometry used, supplemental O2 applied, suction/airway equipment at bedside and IV secured IV Propofol dose (mg): 60 Intraservice time/total sedation time (min): 10 ED Sedation Level: Moderate (Concious) Patient Tolerated Procedure: Well Complications: none Course Orders Ordered: ED Orders 11/14/19 00:12 XR ankle LT min 3V Stat XR tibia fibula LT 2V Stat 11/14/19 00:15 Basic Metabolic Panel Stat Complete Blood Count AUTO DIFF Stat Ethanol (ETOH) Stat Prothrombin Time INR Stat 11/14/19 02:04 XR ankle LT 2V Stat Fentanyl (Sublimaze) 50 mcg IV Q1HR PRN PRN Reason: Pain, Severe (7-10) Last Admin: 11/14/19 00:28 Dose: 50 mcg Documented by: ANGELA Discontinued Medications Hydromorphone HCl (Dilaudid) 0.5 mg IV NOW ONE Stop: 11/14/19 03:22 Last Admin: 11/14/19 03:43 Dose: 0.5 mg Documented by: ELLA Hydromorphone HCl (Dilaudid) 1 mg IV NOW ONE Stop: 11/14/19 05:02 Last Admin: 11/14/19 05:11 Dose: 1 mg Documented by: CECILE Ondansetron HCl (Zofran) 4 mg IV NOW ONE Stop: 11/14/19 05:06 Last Admin: 11/14/19 05:11 Dose: 4 mg Documented by: CECILE Propofol (Diprivan) 55 mg 1 mg/kg (55 mg) IV NOW ONE Stop: 11/14/19 01:12 Last Admin: 11/14/19 01:48 Dose: 55 mg Documented by: ANGELA Consultations Consultation #1: Initial x-ray discussed with on-call Orthopedics (Dr. Montanez), he views images and states that given the periprosthetic nature of the injury that patient will need to go to [facility] as we do not perform these surgeries here Consultation #2: Dr. Shah ([facility]) happy to accept Consultation #3: Daughter (DPOA) contacted, fully aware and in agreement with plan to transfer to [facility]. She lives in [place] and will meet at [facility] [phone] Vital Signs Vital signs: Vital Signs - 8 hr 11/14/19 00:10 11/14/19 00:30 11/14/19 00:34 Pulse Rate 92 H 94 H Pulse Rate [Left Posterior Tibial] 90 Respiratory Rate 20 20 Blood Pressure 197/96 H Blood Pressure [Left Arm] 158/72 H Pulse Oximetry 96 95 11/14/19 01:23 11/14/19 01:30 11/14/19 01:40 Pulse Rate 97 H 98 H 100 H Pulse Rate [Left Posterior Tibial] Respiratory Rate 20 27 H 33 H Blood Pressure Blood Pressure [Left Arm] 180/83 H 151/65 H 164/76 H Pulse Oximetry 96 93 96 11/14/19 01:45 11/14/19 01:50 11/14/19 01:55 Pulse Rate 97 H 109 H 104 H Pulse Rate [Left Posterior Tibial] Respiratory Rate 28 H 25 H 36 H Blood Pressure Blood Pressure [Left Arm] 153/71 H 200/99 H 167/103 H Pulse Oximetry 98 88 L 95 11/14/19 02:00 11/14/19 02:05 11/14/19 02:10 Pulse Rate 101 H 97 H 100 H Pulse Rate [Left Posterior Tibial] Respiratory Rate 35 H 28 H 28 H Blood Pressure Blood Pressure [Left Arm] 180/83 H 153/70 H 146/67 H Pulse Oximetry 96 96 95 11/14/19 02:15 11/14/19 02:30 11/14/19 04:23 Pulse Rate 98 H 98 H 99 H Pulse Rate [Left Posterior Tibial] Respiratory Rate 22 21 18 Blood Pressure Blood Pressure [Left Arm] 137/58 L 141/65 H 149/69 H Pulse Oximetry 97 99 97 MDM - Extremity Injury (Lower) Lab Data Result diagrams: 11/14/19 00:15 11/14/19 00:15 Labs: Lab Results 11/14/19 11/14/19 11/14/19 Range/Units 00:15 00:15 00:15 WBC 8.0 (4.5-11.0) X10^3/uL RBC 4.47 (4.0-5.2) X10^6/uL Hgb 14.1 (12.0-16.0) g/dL Hct 41.6 (36-46) % MCV 93.1 (80-100) fL MCH 31.5 (26-34) PG MCHC 33.8 (30-36) % RDW 15.1 H (11.6-14.8) % Plt Count 259 (150-400) X10^3/uL Neut % (Auto) 72.1 (50-75) % Lymph % (Auto) 17.3 L (25-40) % [place] % (Auto) 8.2 (3-14) % Eos % (Auto) 1.5 L (2-4) % Baso % (Auto) 0.9 (0-2) % Neut # (Auto) 5800 (0552-1936) /uL Lymph # (Auto) 1400 (3110-9441) /uL [place] # (Auto) 700 (0-900) /uL Eos # (Auto) 100 (0-450) /uL Baso # (Auto) 100 (0-100) /uL PT 10.4 (10.1-12.7) SECONDS INR 0.9 (0.9-1.3) Sodium 136 L (137-145) mmol/L Potassium 4.3 (3.4-5.1) mmol/L Chloride 95 L (98-107) mmol/L Carbon Dioxide 27 (22-32) mmol/L BUN 10 (7-17) mg/dL Creatinine 0.50 L (0.52-1.04) mg/dL Estimated GFR > 60.0 (>60) mL/min BUN/Creatinine Ratio 20.0 (6-22) Glucose 133 H (80-110) mg/dL Calcium 9.2 (8.4-10.2) mg/dL Ethyl Alcohol 200 H ( - 10) mg/dL Point of Care Testing Test Results Not applicable Imaging Data Extremity x-ray #1: Attestation: I personally reviewed and interpreted this imaging study as follows: My Impression: distal tib/fib fracture with minimal displacement. Involving prior surgical hardware Critical Care Time Critical Care Time Critical Care Time: Yes Total Critical Care Time: 45 Attestation: The high probability of a clinically significant, sudden or life threatening deterioration of the [CV, neuro, musculoskeletal] system(s) required my full and direct attention, intervention and personal management. The aggregate critical care time was [45] minutes. This time is in addition to time spent performing reported procedures but includes the following: [x] Data Review and interpretation [x] Patient assessment and monitoring of vital signs [x] Documentation [x] Medication orders and management Discharge Plan Departure Patient Disposition: [facility] Clinical Impression: Fracture tibia/fibula Qualifiers: Encounter type: initial encounter Fracture type: closed Laterality: left Qualified Code(s): S82.202A - Unspecified fracture of shaft of left tibia, initial encounter for closed fracture Prescriptions: No Action carvedilol 6.25 mg Tablet 6.25 mg PO BID RF: 0 lisinopril 20 mg Tablet 10 mg PO DAILY RF: 0 aspirin 81 mg Tablet,Delayed Release (Dr/Ec) 81 mg PO DAILY RF: 0 albuterol sulfate 90 mcg/actuation Hfa Aerosol Inhaler 2 puff INHALATION Q4-6H PRN (Reason: Shortness Of Breath) RF: 0 Qvar 80 mcg/actuation Aerosol 1 puff INHALATION QAM RF: 0 Spiriva with HandiHaler 18 mcg Capsule, W/Inhalation Device 1 cap INHALATION DAILY RF: 0 ferrous gluconate 324 mg (37.5 mg iron) tablet 324 mg PO DAILY Qty: 30 RF: 3 methocarbamol [Robaxin] 500 mg tablet 500 mg PO TID PRN (Reason: muscle spasm) Qty: 20 RF: 0 hydrocodone-acetaminophen 5-325 mg tablet 1 tab PO Q4-6H PRN (Reason: pain) Qty: 7 RF: 0 ondansetron 4 mg tablet,disintegrating 4 mg PO Q6H PRN (Reason: nausea and vomiting) Qty: 20 RF: 0 Referrals: Maria Victoria Bustamante MD [Primary Care Provider] -
[2019-11-14] MEDS: propofoL 200 MG/20 ML VIAL 55 MG IV (01:48)
--- NOTE | 2019-11-14 02:04 | DI.RAD.S_ITS ---
PROCEDURE: XR ANKLE LT 2V INDICATIONS: post splint / reduction TECHNIQUE: 2 views of the ankle were acquired. COMPARISON: None. FINDINGS: Bones: Improved alignment and distal tibia after posterior reduction and splinting. As noted on the last exam, there is a spiral fracture in the distal tibia and a transverse fracture in the distal fibula with mild displacement and angulation. Old fractures with internal fixations of the medial and lateral malleoli. Ankle mortise is normally aligned. No suspicious bony lesions. Soft tissues: No tibiotalar joint effusion. Achilles tendon appears normal. IMPRESSION: Improved alignment post closed reduction in distal fibular and distal tibial fractures. Dictated by: Santiago Martinez M.D. on 11/14/2019 at 9:00 Approved by: Santiago Martinez M.D. on 11/14/2019 at 9:02
[2019-11-14] MEDS: HYDROMORPHONE 0.5 MG INJ IV (03:43)
[2019-11-14] MEDS: HYDROMORPHONE 1 MG INJ IV (05:11)
[2019-11-14] MEDS: ONDANSETRON 4 MG/2 ML INJ IV (05:11)
== END 2019-11-14 05:25 | disposition short-term general hospital (02) ==
PROVIDERS: Emergency Provider Emergency Medicine; Family Provider Internal Medicine; PCP Internal Medicine
DX: S82.202A Unspecified fracture of shaft of left tibia, initial encounter for closed fracture (principal); W19.XXXA Unspecified fall, initial encounter
CPT/HCPCS: 27752; 73590; 73600; 73610; 80048; 80320; 85025; 85610; 94770; 99152; 99285; 99291; J1170; J2405; J2704; J3010